=== PATIENT | male | born 1940 | race African-American/Black ===

== ENCOUNTER → 2017-05-12 | Outpatient (CLI) | payer MEDICARE, MEDICAID ==
[~2017-05-12] MED LIST: AMLO5TAB2 PO; AMLO5TAB22 PO; ASPI-147 PO; ASPI1TAB7 PO; INFL1INJ56 IM; MULT1TAB64 PO; MUPI2OIN TOPICAL; TAB-TAB PO; WHEEMIS3; roho cushion
[2017-05-12 10:47] LABS: ALT (GPT) 17 U/L (12-78); ANION GAP 7 MEQ/L (5-15); AST (GOT) 13 U/L (15-37); BICARBONATE 28.3 MEQ/L (21.0-32.0); BLOOD UREA NITROGEN 13 MG/DL (7-18); CHLORIDE 103 MEQ/L (98-107); GLOMERULAR FILTRATION RATE 114 ML/MIN (>89); GLUCOSE,FASTING 79 MG/DL (74-99); SODIUM (NA) 138 MEQ/L (136-145)
[2017-05-12 10:49] LABS: ALKALINE PHOSPHATASE 73 U/L (45-117); TOTAL BILIRUBIN ADULT 0.3 MG/DL (0.2-1.0)
== END ==
LOC: CLAB 09:49
PROVIDERS: ATTEND Family Medicine
DX: I10 Essential (primary) hypertension (principal)
CPT/HCPCS: 36415; 80053

== ENCOUNTER 2017-05-15 21:04 | Emergency (ER) | payer MEDICARE, MEDICAID ==
[~2017-05-15] VITALS: Ht 177.8 cm; Wt 65.0 kg
[~2017-05-15 21:04] MED LIST changes: -ASPI-147 PO; -INFL1INJ56 IM; -MULT1TAB64 PO; -roho cushion
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
[2017-05-15 21:13] VITALS: BP 135/91; PULSE 86; RESP 15; O2SAT 97
[2017-05-15] MEDS ORDERED: LIDOCAINE 2%/EPINEPHrine 1:100,000 50ML MDV NERV BLOCK ONE (21:30)
--- NOTE | 2017-05-15 21:35 | PD ---
Physical Exam Date Seen by Provider: May 15, 2017 Time Seen by Provider: 21:34 Narrative I was asked by Dr. Mera to see this patient for laceration to the left upper lateral cheek, and upper middle inner lip status post fall. Please see my procedure note. Data Data Last Documented VS Vital Signs Date Time Temp Pulse Resp B/P (MAP) Pulse Ox O2 Delivery O2 Flow Rate FiO2 05/15/17 21:23 84 96 Room Air 05/15/17 21:13 15 135/91 (106) Orders Orders Lidocai-Epi 2%-1:100,000 Inj (Xylocaine- (05/15/17 21:30) Ct Brain W/O Iv Contrast(Rout) (05/15/17 ) Ct Cerv Spine W/O Contrast (05/15/17 ) Ct Facial Bones W/O Iv Cont (05/15/17 ) MDM Medical Record Reviewed: Yes Supervised Visit with BRISEIDA: Yes Procedures Procedure Narrative LACERATION #1 LOCATION: Left upper lateral cheek LENGTH: 3.5 cm NUMBER OF STITCHES/BLESSING: 4 interrupted horizontal mattress and one simple interrupted REPAIR: The area of the laceration was prepped with Betadine and sterilely draped. The laceration was infiltrated with 2.5 mL was 2% lidocaine with epi. The wound was copiously irrigated and explored without evidence of foreign body , tendon injury or neurovascular injury. The wound was closed using 5-0 Prolene. This was a single layer repair. The patient was advised to keep the wound site clean and dry. Patient tolerated the procedure well. LACERATION #2 LOCATION: Upper middle inner lip LENGTH: 1 cm NUMBER OF STITCHES/BLESSING: 1 horizontal mattress REPAIR: The area of the laceration was prepped with Betadine and sterilely draped. The laceration was infiltrated with 2 mL 2% lidocaine with epi. The wound was copiously irrigated and explored without evidence of foreign body, tendon injury or neurovascular injury. The wound was closed using 5-0 Vicryl. This was a single layer repair. The patient was advised to keep the area clean and dry. Patient tolerated the procedure well. Condition: Stable aBrry Ramos May 15, 2017 21:35
[2017-05-15 22:30] VITALS: BP 136/82; PULSE 80; RESP 14; O2SAT 96
--- NOTE | 2017-05-15 22:53 | RADRPT ---
EXAM DATE/TIME: 05/15/2017 22:21 [facility] COMPARISON: No previous studies available for comparison. INDICATIONS : Trauma. Fall. RADIATION DOSE: 35.40 CTDIvol (mGy) MEDICAL HISTORY : Cardiovascular disease. Hypertension. Carcinoma, prostate.Renal cancer SURGICAL HISTORY : Nephrectomy, right. ENCOUNTER: Initial ACUITY: 1 day PAIN SCALE: 0/10 LOCATION: cranial TECHNIQUE: Multiple contiguous axial images were obtained of the head. Using automated exposure control and adj ustment of the mA and/or kV according to patient size, radiation dose was kept as low as reasonably a chievable to obtain optimal diagnostic quality images. DICOM format image data is available electro nically for review and comparison. FINDINGS: CEREBRUM: The ventricles are normal for age. No evidence of midline shift, mass lesion, hemorrhage or acute in farction. No extra-axial fluid collections are seen. POSTERIOR FOSSA: The cerebellum and brainstem are intact. The 4th ventricle is midline. The cerebellopontine angle i s unremarkable. EXTRACRANIAL: The visualized portion of the orbits is intact. SKULL: The calvaria is intact. No evidence of skull fracture. CONCLUSION: 1. No acute intracranial abnormalities. Chapito Melo MD on May 15, 2017 at 22:47 Board Certified Radiologist. This report was verified electronically.
--- NOTE | 2017-05-15 22:56 | RADRPT ---
EXAM DATE/TIME: 05/15/2017 22:21 [facility] COMPARISON: No previous studies available for comparison. INDICATIONS : Trauma. Fall. RADIATION DOSE: 36.52 CTDIvol (mGy) MEDICAL HISTORY : Cardiovascular disease. Hypertension. Carcinoma, prostate.Renal cancer SURGICAL HISTORY : Nephrectomy, right. ENCOUNTER: Initial ACUITY: 1 day PAIN SCORE: 0/10 LOCATION: Left facial TECHNIQUE: Volumetric scanning of the facial bones was performed. Using automated exposure control and adjustme nt of the mA and/or kV according to patient size, radiation dose was kept as low as reasonably achiev able to obtain optimal diagnostic quality images. DICOM format image data is available electronicall y for review and comparison. FINDINGS: ORBITS: The orbital and infraorbital osseous structures are intact. The retroconal structures have a normal configuration. No radiopaque foreign bodies are seen. NASAL BONE: The nasal bone and maxillary spine are intact ZYGOMATIC ARCHES: Symmetric without evidence of fracture. SINUSES: The maxillary, ethmoid and frontal sinuses are intact. No air-fluid levels seen. NASAL CAVITY: The nasal septum is intact and midline. The lacrimal ducts are intact. SOFT TISSUES: No radiopaque foreign bodies seen. No soft-tissue swelling is seen. INTRACRANIAL: No intracranial air seen. CRIBIFORM PLATE: Grossly intact. CONCLUSION: Normal examination for a patient of this age. Chapito Melo MD on May 15, 2017 at 22:52 Board Certified Radiologist. This report was verified electronically.
--- NOTE | 2017-05-15 22:59 | RADRPT ---
EXAM DATE/TIME: 05/15/2017 22:21 [facility] COMPARISON: No previous studies available for comparison. INDICATIONS : Trauma. Fall. RADIATION DOSE: 20.82 CTDIvol (mGy) MEDICAL HISTORY : Cardiovascular disease. Hypertension. Carcinoma, prostate.Renal cancer SURGICAL HISTORY : Nephrectomy, right. ENCOUNTER: Initial ACUITY: 1 day PAIN SCALE: 0/10 LOCATION: neck TECHNIQUE: Volumetric scanning of the cervical spine was performed. Multiplanar reconstructions in the sagittal, coronal and oblique axial planes were performed. Using automated exposure control and adjustment o f the mA and/or kV according to patient size, radiation dose was kept as low as reasonably achievable to obtain optimal diagnostic quality images. DICOM format image data is available electronically f or review and comparison. FINDINGS: VERTEBRAE: Normal vertebral body height. ALIGNMENT: No evidence of subluxation. C2-C3: The bony spinal canal is normal in size. No evidence of disc bulge or herniation. The neural forami na are bilaterally patent. C3-C4: The bony spinal canal is normal in size. No evidence of disc bulge or herniation. The neural forami na are bilaterally patent. C4-C5: The bony spinal canal is normal in size. No evidence of disc bulge or herniation. The neural forami na are bilaterally patent. C5-C6: The bony spinal canal is normal in size. No evidence of disc bulge or herniation. The neural forami na are bilaterally patent. C6-C7: The bony spinal canal is normal in size. No evidence of disc bulge or herniation. The neural forami na are bilaterally patent. C7-T1: The bony spinal canal is normal in size. No evidence of disc bulge or herniation. The neural forami na are bilaterally patent. CONCLUSION: 1. There is moderate degenerative disc disease and moderate to severe facet arthropathy. No fracture or spondylolisthesis. No significant bony canal stenosis. Chapito Melo MD on May 15, 2017 at 22:54 Board Certified Radiologist. This report was verified electronically.
[2017-05-15 23:30] VITALS: BP 124/84; PULSE 82; RESP 16; O2SAT 97
[2017-06-10] MEDS ORDERED: WHEEMIS3 (15:37)
[2017-06-10] MEDS ORDERED: INFL1INJ56 IM (15:45)
[2017-06-23] MEDS ORDERED: MULT1TAB64 PO (14:58)
[2017-06-23] MEDS ORDERED: ASPI-147 PO (14:58)
[2017-06-24] MEDS ORDERED: roho cushion (15:38)
== END 2017-05-16 00:21 | disposition home or self-care (01) ==
LOC: NEPC 21:04
DX: S01.412A Laceration without foreign body of left cheek and temporomandibular area, initial encounter (principal); S01.511A Laceration without foreign body of lip, initial encounter; I69.354 Hemiplegia and hemiparesis following cerebral infarction affecting left non-dominant side; W05.0XXA Fall from non-moving wheelchair, initial encounter; Z99.3 Dependence on wheelchair
CPT/HCPCS: 12013; 70450; 70486; 72125

== ENCOUNTER 2017-05-22 16:10 | Emergency (ER) | payer MEDICARE, MEDICAID ==
[~2017-05-22] VITALS: Ht 177.8 cm; Wt 80.0 kg
[2017-05-22 16:11] VITALS: BP 96/66; PULSE 93; RESP 20; TEMP 97.8; O2SAT 96
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
[2017-06-10] MEDS ORDERED: WHEEMIS3 (15:37)
[2017-06-10] MEDS ORDERED: INFL1INJ56 IM (15:45)
[2017-06-23] MEDS ORDERED: MULT1TAB64 PO (14:58)
[2017-06-23] MEDS ORDERED: ASPI-147 PO (14:58)
[2017-06-24] MEDS ORDERED: roho cushion (15:38)
== END 2017-05-22 17:15 | disposition home or self-care (01) ==
LOC: NEPK 16:10
DX: S01.402D Unspecified open wound of left cheek and temporomandibular area, subsequent encounter (principal); X58.XXXD Exposure to other specified factors, subsequent encounter; Z48.02 Encounter for removal of sutures
CPT/HCPCS: 99281

== ENCOUNTER 2017-08-27 23:08 | Inpatient (IN) | payer MEDICARE, MEDICAID ==
[~2017-08-27] VITALS: Ht 175.3 cm; Wt 86.5 kg
[~2017-08-27 23:08] MED LIST changes: -AMLO5TAB22 PO; +ASPI-147 PO; -ASPI1TAB7 PO; +CARBSOL EACH EYE; +MULT1TAB64 PO; -TAB-TAB PO; +roho cushion
[2017-08-27 23:13] VITALS: O2SAT 92
[2017-08-27 23:20] VITALS: BP 150/67; PULSE 127; RESP 10; TEMP 97; O2SAT 90; O2SAT 98
[2017-08-27 23:35] VITALS: BP 72/47; PULSE 129; RESP 16; O2SAT 95
[2017-08-27 23:40] VITALS: TEMP 97
[2017-08-27 23:44] LABS: AUTOMATED NEUTROPHIL # 1.8 TH/MM3 (1.8-7.7); BASOPHIL # 0.1 TH/MM3 (0-0.2); BASOPHIL % 0.7 % (0.0-2.0); EOSINOPHIL # 0.2 TH/MM3 (0-0.4); EOSINOPHIL % 1.6 % (0.0-4.0); HEMOGLOBIN 13.8 GM/DL (13.0-17.0); LYMPH % 72.9 % (9.0-44.0); LYMPHOCYTE # 6.9 TH/MM3 (1.0-4.8); MEAN CELL VOLUME 88.9 FL (80.0-100.0); MEAN CORPUSCULAR HEMOGLOBIN 29.2 PG (27.0-34.0); MEAN CORPUSCULAR HGB CONC 32.8 % (32.0-36.0); MONO % 5.6 % (0.0-8.0); MONOCYTE # 0.5 TH/MM3 (0-0.9); NEUT % 19.2 % (16.0-70.0); PLATELET COUNT 120 TH/MM3 (150-450); RED BLOOD COUNT 4.72 MIL/MM3 (4.50-5.90); RED CELL DISTRIBUTION WIDTH 15.8 % (11.6-17.2); WHITE BLOOD COUNT 9.5 TH/MM3 (4.0-11.0)
[2017-08-27] MEDS ORDERED: TERBUTALINE INJ 1 MG/ML AMP SQ PRN (23:45)
[2017-08-27] MEDS ORDERED: SODIUM CHLOR 0.9% 1000 ML INJ 1,000 ML IV ONE (23:45)
[2017-08-27] MEDS ORDERED: SODIUM CHLORIDE 0.9% FLUSH 10 ML FLUSH IVF PRN (23:45)
[2017-08-27] MEDS ORDERED: NOREPINEPHRINE-DEXTROSE DRIP 250 ML IV PRN (23:45)
[2017-08-27 23:49] VITALS: O2SAT 100
[2017-08-27 23:52] VITALS: BP 102/74; PULSE 124; RESP 14; O2SAT 100
[2017-08-27 23:55] LABS: INTERNATIONAL NORMALIZED RATIO 1.1 RATIO; PROTHROMBIN TIME - PATIENT 11.5 SEC (9.8-11.6)
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
[2017-08-28] VITALS (32 sets, daily range): BP systolic 76–118; BP diastolic 52–94; PULSE 75–127; RESP 10–20; TEMP 95–98.2; O2SAT 92–100
[2017-08-28 00:02] LABS: ALT (GPT) 114 U/L (12-78); AST (GOT) 114 U/L (15-37); BICARBONATE 22.7 MEQ/L (21.0-32.0); BLOOD UREA NITROGEN 14 MG/DL (7-18); CALCIUM 8.4 MG/DL (8.5-10.1); CHLORIDE 108 MEQ/L (98-107); CREATININE 1.17 MG/DL (0.60-1.30); GLOMERULAR FILTRATION RATE 61 ML/MIN (>89); GLUCOSE,RANDOM 151 MG/DL (74-106); SODIUM (NA) 143 MEQ/L (136-145)
[2017-08-28 00:05] LABS: ALKALINE PHOSPHATASE 75 U/L (45-117); TOTAL BILIRUBIN ADULT 0.5 MG/DL (0.2-1.0); TOTAL PROTEIN 6.6 GM/DL (6.4-8.2); TROPONIN I 0.04 NG/ML (0.02-0.05)
[2017-08-28] MEDS ORDERED: IOHEXOL 350 MG/ML 10 ML VIAL (for RAD DIAG) IVCONTRAST ONE (00:19)
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
--- NOTE | 2017-08-28 00:25 | RADRPT ---
EXAM DATE/TIME: 08/27/2017 23:59 [facility] COMPARISON: CT PULMONARY ANGIOGRAM, August 28, 2017, 0:01. CHEST SINGLE AP, November 23, 2014, 16:00. INDICATIONS : Stemi alert. Post intubation. MEDICAL HISTORY : Unobtainable. SURGICAL HISTORY : Unobtainable. ENCOUNTER: Initial ACUITY: 1 day PAIN SCORE: Non-responsive. LOCATION: chest FINDINGS: Endotracheal tube tip is just above the paula. There is slight parenchymal opacity at the left lung base. No significant effusion. Cardiac contours are grossly satisfactory for technique and projection . CONCLUSION: Parenchymal opacity developing at the left lung base Chema Freeman MD on August 28, 2017 at 0:22 Board Certified Radiologist. This report was verified electronically.
--- NOTE | 2017-08-28 00:29 | RADRPT ---
EXAM DATE/TIME: 08/28/2017 00:01 [facility] COMPARISON: No previous studies available for comparison. INDICATIONS : Respiratory distress. IV CONTRAST: 70 cc Omnipaque 350 (iohexol) IV RADIATION DOSE: 15.34 CTDIvol (mGy) MEDICAL HISTORY : Non-responsive. SURGICAL HISTORY : Non-responsive. ENCOUNTER: Initial ACUITY: 1 day PAIN SCALE: Non-responsive LOCATION: chest TECHNIQUE: Volumetric scanning of the chest was performed using a pulmonary embolism protocol MIP images were re constructed. Using automated exposure control and adjustment of the mA and/or kV according to patien t size, radiation dose was kept as low as reasonably achievable to obtain optimal diagnostic quality images. DICOM format image data is available electronically for review and comparison. Follow-up recommendations for detected pulmonary nodules are based at a minimum on nodule size and pa tient risk factors according to Fleischner Society Guidelines. FINDINGS: PULMONARY ARTERIES: Extensive bilateral pulmonary embolism, slightly more extensive on the right than the left with a sad dle component draped over the pulmonary artery bifurcation. LUNGS: Mild airspace infiltrate in the posterior left lung base. PLEURAE: There is no pleural thickening or pleural effusion. MEDIASTINUM: There is good visualization of the great vessels of the middle mediastinum. No evidence of mediastin al or hilar adenopathy/mass. Endotracheal tube tip extends slightly into the right mainstem bronchus. MUSCULOSKELETAL: Within normal limits for patient age. MISCELLANEOUS: The visualized upper abdominal organs demonstrate no acute abnormality. CONCLUSION: Saddle pulmonary embolism. Endotracheal tube tip extends into the right mainstem bronchus. Retraction by couple of centimeters r ecommended Chema Freeman MD on August 28, 2017 at 0:23 Board Certified Radiologist. This report was verified electronically.
[2017-08-28] MEDS ORDERED: POTASSIUM PHOSPHATE INJ 30 MMOL in SODIUM CHLOR 0.9% 250 ML INJ 250 ML IV PRN (00:30)
[2017-08-28] MEDS ORDERED: TERBUTALINE INJ 1 MG/ML AMP SQ PRN (00:30)
[2017-08-28] MEDS ORDERED: MAGNESIUM SULFATE INJ 4 GM in SODIUM CHLORIDE 0.9% INJ 92 ML IV PRN (00:30)
[2017-08-28] MEDS ORDERED: POTASSIUM CHLORIDE 25 MEQ EFFERVESCENT TAB PO PRN (00:30)
[2017-08-28] MEDS ORDERED: MIDAZOLAM HCL 2 MG/2 ML VIAL IV PUSH PRN (00:30)
[2017-08-28] MEDS ORDERED: DEXTROSE 50% IN WATER 50 ML VIAL(D50) IV PUSH PRN (00:30)
[2017-08-28] MEDS ORDERED: ACETAMINOPHEN 325 MG TAB PO PRN (00:30)
[2017-08-28] MEDS ORDERED: MISCELLANEOUS NURSING INFORMATION XX SCH (00:30)
[2017-08-28] MEDS ORDERED: RESP: ALBUTEROL 2.5 MG/IPRATROPIUM 0.5 MG NEB (PRN) INH (00:30)
[2017-08-28] MEDS ORDERED: POTASSIUM PHOSPHATE MONOBASIC 500 MG TAB PO/TUBE PRN (00:30)
[2017-08-28] MEDS ORDERED: CHLORHEXIDINE GLUCONATE 2 % 1 PACK (2 CLOTHS) TOP PRN (00:30)
[2017-08-28] MEDS ORDERED: ALTEPLASE INJ 100 MG in WATER STERILE FOR INJ 100 ML IV ONE (00:30)
[2017-08-28] MEDS ORDERED: MISCELLANEOUS NURSING INFORMATION OTHER PRN (00:30)
[2017-08-28] MEDS ORDERED: ONDANSETRON HCL 4 MG/2 ML VIAL IV PUSH PRN (00:30)
[2017-08-28] MEDS ORDERED: SODIUM PHOSPHATE INJ 30 MMOL in SODIUM CHLOR 0.9% 250 ML INJ 240 ML IV PRN (00:30)
[2017-08-28] MEDS ORDERED: POTASSIUM PHOSPHATE MONOBASIC 500 MG TAB PO PRN (00:30)
[2017-08-28] MEDS ORDERED: MAGNESIUM OXIDE 400 MG TAB PO PRN (00:30)
[2017-08-28] MEDS ORDERED: NOREPINEPHRINE-DEXTROSE DRIP 250 ML IV PRN (00:30)
[2017-08-28] MEDS ORDERED: MAGNESIUM SULFATE INJ 2 GM in SODIUM CHLORIDE 0.9% INJ 96 ML IV PRN (00:30)
[2017-08-28] MEDS ORDERED: POTASSIUM CHLOR 40 MEQ PREMIX 100 ML IV PRN ×2 (00:30)
[2017-08-28] MEDS ORDERED: POTASSIUM CHLOR 20 MEQ PREMIX 100 ML IV PRN (00:30)
--- NOTE | 2017-08-28 00:33 | RADRPT ---
EXAM DATE/TIME: 08/27/2017 23:58 [facility] COMPARISON: CT BRAIN W/O CONTRAST, May 15, 2017, 22:21. CT PULMONARY ANGIOGRAM, August 28, 2017, 0:01. INDICATIONS : Altered mental status. RADIATION DOSE: 56.35 CTDIvol (mGy) MEDICAL HISTORY : Non-responsive. SURGICAL HISTORY : Non-responsive. ENCOUNTER: Initial ACUITY: 1 day PAIN SCALE: 0/10 LOCATION: cranial TECHNIQUE: Multiple contiguous axial images were obtained of the head. Using automated exposure control and adj ustment of the mA and/or kV according to patient size, radiation dose was kept as low as reasonably a chievable to obtain optimal diagnostic quality images. DICOM format image data is available electro nically for review and comparison. FINDINGS: Mild stable symmetric ventriculomegaly. Small remote stroke in the high convexity posterior right fro ntal region very patchy mild diminished attenuation and deep white matter structures elsewhere. No ev idence of intracranial mass or hemorrhage. Nothing to suggest acute infarction. Extracranial structur es are grossly benign. CONCLUSION: No acute intracranial findings. Chema Freeman MD on August 28, 2017 at 0:27 Board Certified Radiologist. This report was verified electronically.
[2017-08-28 01:07] LABS: BANDS 1 % (0-6); LYMPHOCYTES 76 % (9-44); METAMYELOCYTES 1 % (0-1); MONOCYTES 5 % (0-8); MYELOCYTES 2 % (0-0); NEUTROPHIL # MANUAL DIFF 1.6 TH/MM3 (1.8-7.7); POLYS (SEG NEUTROPHILS) 13 % (16-70)
[2017-08-28 01:08] LABS: ACANTHOCYTES OCC (NORMAL); OVALOCYTES 2+ (NORMAL)
[2017-08-28 01:15] LABS: LACTIC ACID SEPSIS PROTOCOL 4.2 mmol/L (0.4-2.0)
[2017-08-28] MEDS: SODIUM CHLOR 0.9% 1000 ML INJ 1,000 ML IV SCH ×3 (02:13→23:39)
[2017-08-28] MEDS: VASOPRESSIN INJ 40 UNITS in DEXTROSE 5% IN WATER 100ML INJ 98 ML IV SCH ×4 (02:38→16:19)
[2017-08-28] MEDS ORDERED: HEPARIN SODIUM - IV 10,000 UNITS/10 ML VIAL IV PUSH PRN ×2 (03:00)
[2017-08-28] MEDS ORDERED: PROPOFOL 1000 MG/100 ML INJ 100 ML IV PRN (03:15)
--- NOTE | 2017-08-28 03:30 | PD.PROCEDR ---
Procedure Note Procedure I provided the service on 08/27. Delayed note entry. Endotracheal Intubation Diagnosis: Out of hospital cardiac arrest Indications: Patient was emergently intubated in the field. On my evaluation in the emergency department, it was noted that the cuff would not withhold air and the patient became worseningly hypoxic and losing tidal volumes. Decision was made to emergently reintubated patient for torn ET tube cuff Consent: Emergent Anesthesia: Rocuronium 50 mg IV Description of the Procedure: The patient was ventilated on 100% FiO2. A De Luna #2 was used for laryngoscopy and a Grade I view was obtained. Under direct visualization, the prior 7.0 ET tube was removed which demonstrated a torn cuff. All grade 1 view was still obtainable, a 8.5 cuffed endotracheal tube was inserted atraumatically through the vocal cords. Confirmation of correct endotracheal tube placement was made by equal and bilateral breath sounds and colorimetric CO2 detection. The endotracheal tube was secured at 24 cm at the teeth. There were no immediate complications noted. The patient remained hemodynamically stable throughout the procedure. A chest x-ray has been ordered. I personally performed the procedure. Stevo Noriega MD Aug 28, 2017 03:30
[2017-08-28] MEDS: CHLORHEXIDINE GLUCONATE 2 % 1 PACK (2 CLOTHS) TOP SCH (04:00)
[2017-08-28] MEDS ORDERED: ATROPINE SULFATE 1 MG/10 ML SYRINGE IV ONE (05:00)
[2017-08-28] MEDS ORDERED: NOREPINEPHRINE 4 MG/4 ML AMP IV ONE (05:00)
[2017-08-28] MEDS ORDERED: EPINEPHrine HCL (1:10,000) 1 MG/10 ML SYRINGE IV ONE (05:00)
[2017-08-28] MEDS: RESP: ALBUTEROL 2.5 MG/IPRATROPIUM 0.5 MG NEB (SCH) INH ×4 (05:35→20:54)
[2017-08-28] MEDS: INSULIN NovoLIN REGULAR SUPPLEMENTAL SCALE SQ SCH ×4 (06:00→23:39)
[2017-08-28] MEDS: fentaNYL DRIP 250 ML IV PRN ×3 (06:50→23:35)
[2017-08-28] MEDS: FAMOTIDINE 20 MG/2 ML VIAL IV PUSH SCH ×2 (08:44→22:15)
[2017-08-28] MEDS: DOCUSATE SODIUM 50 MG/SENNA 8.6 MG TAB PO SCH ×2 (08:44→22:15)
[2017-08-28] MEDS: CHLORHEXIDINE 0.12% (ORAL KIT) 15 ML CUP MT SCH ×2 (08:44→22:16)
[2017-08-28] MEDS: HEPARIN 25,000 UNITS-D5W 250 ML - PREMIX IV PRN (09:02)
[2017-08-28] MEDS: POTASSIUM CHLOR 20 MEQ PREMIX 100 ML IV PRN ×2 (14:05→17:43)
[2017-08-28] MEDS: NOREPINEPHRINE-DEXTROSE DRIP 250 ML IV PRN ×2 (15:06→16:59)
--- NOTE | 2017-08-28 15:38 | ECHRPT ---
Indication: pulmonary embolism CONCLUSIONS The left ventricular systolic function is severely reduced with an estimated ejection fraction of 20 %. Normal left ventricular size. Wall thickness is normal. There is global left ventricular dysfunction. Aortic valve sclerosis is present. Trace aortic valve regurgitation. There is mild to moderate tricuspid valve regurgitation. The estimated pulmonary arterial pressure is 32 mmHg. BP: 89 / 65 HR: 90 Rhythm: Sinus MEASUREMENTS (Male / Female) Normal Values Technical Quality:Fair 2D ECHO LV Diastolic Diameter PLAX 4.1 cm 4.2 - 5.9 / 3.9 - 5.3 cm LV Systolic Diameter PLAX 3.8 cm IVS Diastolic Thickness 1.0 cm 0.6 - 1.0 / 0.6 - 0.9 cm LVPW Diastolic Thickness 1.1 cm 0.6 - 1.0 / 0.6 - 0.9 cm LV Relative Wall Thickness 0.5 RV Internal Dim ED PLAX 2.5 cm LVOT Diameter 2.0 cm LV Ejection Fraction MOD 4C 15.0 % LV Cardiac Index MOD 4C 421.5 cm/minm LV Ejection Fraction 4C AL 20.7 % LV Cardiac Index 4C AL 604.5 cm/minm M-MODE Aortic Root Diameter MM 3.4 cm AV Cusp Separation MM 2.2 cm DOPPLER AV Peak Velocity 85.3 cm/s AV Peak Gradient 2.9 mmHg AI Peak Velocity 227.0 cm/s AI Peak Gradient 20.6 mmHg AI Pressure Half Time 516.0 ms LVOT Peak Velocity 78.5 cm/s LVOT Peak Gradient 2.5 mmHg AV Area Cont Eq pk 2.9 cm MV Area PHT 3.0 cm LV E' Lateral Velocity 2.8 cm/s TR Peak Velocity 228.0 cm/s TR Peak Gradient 20.8 mmHg Right Atrial Pressure 10.0 mmHg Pulmonary Artery Systolic Pressu 30.8 mmHg Right Ventricular Systolic Press 30.8 mmHg PV Peak Velocity 65.0 cm/s PV Peak Gradient 1.7 mmHg FINDINGS LEFT VENTRICLE The left ventricular systolic function is severely reduced with an estimated ejection fraction of 20 %. Normal left ventricular size. Wall thickness is normal. There is global left ventricular dysfunction. RIGHT VENTRICLE Normal right ventricular size and systolic function. LEFT ATRIUM The left atrial size is normal. RIGHT ATRIUM The right atrial size is normal. ATRIAL SEPTUM Normal atrial septal thickness without atrial level shunting by limited color doppler interrogation. AORTA The aortic root and proximal ascending aorta are normal in size on limited imaging. MITRAL VALVE Structurally normal mitral valve. No mitral valve stenosis or regurgitation. AORTIC VALVE Trileaflet aortic valve. Aortic valve sclerosis is present. Trace aortic valve regurgitation. TRICUSPID VALVE Structurally normal tricuspid valve. There is mild to moderate tricuspid valve regurgitation. The estimated pulmonary arterial pressure is 32.0 mmHg. PULMONARY VALVE No pulmonary valve regurgitation or stenosis. VESSELS The inferior vena cava is normal in size. PERICARDIUM No pericardial effusion. Cindy Jain MD, FACC (Electronically Signed) Final Date:28 August 2017 15:37
--- NOTE | 2017-08-28 18:33 | HHI.CCPN ---
Subjective Remarks/Hospital Course This is a 76-year-old male who presents as an out of hospital cardiac arrest. Per EMS report, there received a phone call for shortness of breath. When they arrived at the scene, patient had agonal respirations and was found to be in PEA. ACLS was initiated. Patient was given a total of 2 mg epinephrine, 1 amp of bicarbonate. ROSC was obtained momentarily, but PEA arrest ensued shortly after. A second round of ACLS by EMS, then ROSC was obtained again. The patient arrived to the emergency department with a pulse but severely hypotensive in shock. In emergency Department patient was started on norepinephrine.. CTA of the chest demonstrated massive saddle pulmonary embolism. Due to his hemodynamic instability, decision was made to pursue lytic therapy with systemic TPA. Patient is transferred to the ICU for ongoing care. I evaluated patient in the emergency department. Due to his clinical condition, no additional information is available from the patient. Subjective: 08/28: The patient continues on multiple vasopressors currently to maintain MAP greater than 65. OGT to low intermittent wall suction exhibiting bloody output. Objective Vital Signs Date Time Temp Pulse Resp B/P (MAP) Pulse Ox O2 Delivery O2 Flow Rate FiO2 08/28/17 16:59 79 97/68 08/28/17 16:00 40 08/28/17 16:00 96.0 14 100 08/28/17 01:13 Ventilator 08/27/17 23:13 15.00 Intake and Output 08/28/17 08/28/17 08/29/17 08:00 16:00 00:00 Intake Total 1100 ml 65 ml Output Total 310 ml 200 ml Balance 790 ml 65 ml -200 ml Result Diagram: 08/27/17 2332 08/27/17 2332 Other Results Laboratory Tests Test 08/28/17 04:24 Blood Gas Puncture Site ART LINE Blood Gas Patient Temperature 98.6 Blood Gas HCO3 22 mmol/L (22-26) Blood Gas Base Excess -2.8 mmol/L (-2-2) Blood Gas Oxygen Saturation 98 % (90-100) Arterial Blood pH 7.32 (7.380-7.420) Arterial Blood Partial Pressure CO2 45 mmHg (38-42) Arterial Blood Partial Pressure O2 242 mmHg (61-120) Arterial Blood Oxygen Content 18.1 Vol % (12.0-20.0) Arterial Blood Carboxyhemoglobin 0.2 % (0-4) Arterial Blood Methemoglobin 1.1 % (0-2) Blood Gas Hemoglobin 12.7 G/DL (12.0-16.0) Oxygen Delivery Device VENTILATOR Blood Gas Ventilator Setting PRVC / AC / Blood Gas Inspired Oxygen 70 % Imaging Last Impressions Chest X-Ray 08/27/171 Signed Impressions: Service Date/Time: August 23:59 - CONCLUSION: Parenchymal opacity developing at the left lung base Chema Freeman MD CT Angiography 08/27/171 Signed Impressions: Service Date/Time: Monday, August 28, 2017 00:01 - CONCLUSION: Saddle pulmonary embolism. Endotracheal tube tip extends into the right mainstem bronchus. Retraction by couple of centimeters recommended Chema Freeman MD Head CT 08/27/17 0000 Signed Impressions: Service Date/Time: August 23:58 - CONCLUSION: No acute intracranial findings. Chema Freeman MD Objective Remarks GENERAL: Elderly male, lying in bed, intubated and sedated on propofol HEENT: Normocephalic. Atraumatic. Pupils are 5 mm, equal, round, nonreactive, conjugate. Mucous membranes are moist NECK: Trachea is midline. There is no JVD. CHEST: Equal chest rise. PRVC. 100% FiO2. SPO2 of 85% on my initial evaluation CARDIOVASCULAR: Tachycardic rate, irregularly irregular rhythm. Frequent PVCs. Hypotensive on norepinephrine ABDOMEN: Soft, nontender, nondistended. No guarding. MUSCULOSKELETAL: Pulses 2+. No peripheral edema. NEUROLOGICAL: GCS 3. Pulses above. Negative cough. Negative gag. Spontaneous eye opening. A/P Assessment and Plan Assessment: 76-year-old male with out of hospital cardiac arrest and persistent hypoxic ischemic encephalopathy, found to have massive pulmonary embolus with hemodynamic collapse. Agree with systemic TPA. Ideally he would be a good therapy therapeutic hypothermia candidate as he will need neuro protection, however we cannot do this due to his lytic therapy. We will target 36 in a targeted temperature therapy manner in order to prevent hyperthermia without the bleeding risks associated with full therapeutic hypothermia. He remains very critically ill at very high risk of sudden cardiac from his massive PE. Plan by systems: Neurologic: Hypoxic ischemic encephalopathy Frequent neuro checks Propofol and fentanyl for goal RASS -2 Avoid long-acting sedatives Respiratory: Acute hypoxic and hypercarbic respiratory failure Massive saddle pulmonary embolus Intubation noted right mainstem bronchus ETT retracted back to use 22 cm at the lip Vent bundle Head of bed at 30 Nebs Wean FiO2 for goal SPO2 greater than 90% Systemic TPA, 100 mg, followed by heparin infusion initiated Cardiovascular: Massive saddle pulmonary embolism Out of hospital cardiac arrest Cardiogenic shock 2-D echo Systemic TPA, followed by heparin infusion 6 hours later Trend lactates Continue vasopressin 0.04 units per minute Wean levophed as tolerated for goal map greater than 65 Renal: Acute kidney injury superimposed on chronic kidney disease, unknown stage Place Perez for accurate I's and O's -- Strict I/Os FEN/GI: Acute protein calorie malnutrition- moderate Nothing by mouth Maintenance fluids ICU electrolyte protocol Daily BMP Heme/ID: 100 mg systemic TPA for massive pulmonary embolus. Continue heparin drip, monitor PTT per protocol Endocrine: Hyperglycemia of critical illness -- SSI, every 6, medium scale Prophylaxis: GI Prophylaxis Pepcid IV DVT Prophylaxis -- SCDs TPA followed by systemic heparin drip Lines: 08/27 radial arterial line placed by the emergency room physician Ideally the patient will need central access, however TPA was initiated prior to central access being obtained. We will use peripheral IVs 16-gauge and monitor the vasopressors closely. Ana Dispo: To ICU. Critically ill. This patient remains critically ill with one or more organ systems which are or may become a threat to life. I have spent in excess of 33 minutes discontinuously in the care and management of this patient. This time is exclusive of procedures, and includes, but is not limited to, evaluation of the patient, review of the medical record, discussions with family, consultants, nursing staff, or respiratory therapy, and documentation in the medical record. Physician Ronda Castillo MD Aug 28, 2017 18:33
[2017-08-28 21:20] LABS: AUTOMATED NEUTROPHIL # 18.3 TH/MM3 (1.8-7.7); BASOPHIL % 0.1 % (0.0-2.0); HEMATOCRIT 35.8 % (39.0-51.0); HEMOGLOBIN 11.6 GM/DL (13.0-17.0); LYMPH % 5.6 % (9.0-44.0); LYMPHOCYTE # 1.2 TH/MM3 (1.0-4.8); MEAN CELL VOLUME 87.3 FL (80.0-100.0); MEAN CORPUSCULAR HEMOGLOBIN 28.2 PG (27.0-34.0); MEAN CORPUSCULAR HGB CONC 32.3 % (32.0-36.0); MEAN PLATELET VOLUME 10.9 FL (7.0-11.0); MONO % 5.7 % (0.0-8.0); MONOCYTE # 1.2 TH/MM3 (0-0.9); NEUT % 88.6 % (16.0-70.0); PLATELET COUNT 108 TH/MM3 (150-450); WHITE BLOOD COUNT 20.7 TH/MM3 (4.0-11.0)
[2017-08-29] VITALS (19 sets, daily range): BP systolic 88–118; BP diastolic 60–72; PULSE 77–103; RESP 8–17; TEMP 96.9–97.5; O2SAT 69–99
[2017-08-29] MEDS: NOREPINEPHRINE-DEXTROSE DRIP 250 ML IV PRN ×3 (03:28→19:36)
[2017-08-29] MEDS: RESP: ALBUTEROL 2.5 MG/IPRATROPIUM 0.5 MG NEB (SCH) INH ×4 (03:52→19:12)
[2017-08-29] MEDS: CHLORHEXIDINE GLUCONATE 2 % 1 PACK (2 CLOTHS) TOP SCH (04:00)
[2017-08-29] MEDS: INSULIN NovoLIN REGULAR SUPPLEMENTAL SCALE SQ SCH ×3 (05:28→18:00)
[2017-08-29 06:08] LABS: AUTOMATED NEUTROPHIL # 18.3 TH/MM3 (1.8-7.7); BASOPHIL % 0.1 % (0.0-2.0); HEMATOCRIT 31.9 % (39.0-51.0); HEMOGLOBIN 10.4 GM/DL (13.0-17.0); LYMPH % 6.5 % (9.0-44.0); LYMPHOCYTE # 1.4 TH/MM3 (1.0-4.8); MEAN CELL VOLUME 87.1 FL (80.0-100.0); MEAN CORPUSCULAR HEMOGLOBIN 28.5 PG (27.0-34.0); MEAN CORPUSCULAR HGB CONC 32.7 % (32.0-36.0); MONO % 8.2 % (0.0-8.0); MONOCYTE # 1.8 TH/MM3 (0-0.9); NEUT % 85.2 % (16.0-70.0); PLATELET COUNT 93 TH/MM3 (150-450); RED BLOOD COUNT 3.66 MIL/MM3 (4.50-5.90); RED CELL DISTRIBUTION WIDTH 16.2 % (11.6-17.2); WHITE BLOOD COUNT 21.4 TH/MM3 (4.0-11.0)
--- NOTE | 2017-08-29 06:44 | RADRPT ---
EXAM DATE/TIME: 08/29/2017 03:34 [facility] COMPARISON: CHEST SINGLE AP, August 27, 2017, 23:59. INDICATIONS : Shortness of breath, possible pulmonary disease. MEDICAL HISTORY : None. SURGICAL HISTORY : None. ENCOUNTER: Subsequent ACUITY: 3 days PAIN SCORE: Non-responsive. LOCATION: Bilateral chest FINDINGS: Endotracheal tube and nasogastric tube are present in good position. Mild left base parenchymal opaci ty obscured the diaphragm. Right lung is grossly clear. Cardiac contours are stable accounting for di fferences in technique and projection. CONCLUSION: No significant interval change Chema Freeman MD on August 29, 2017 at 6:41 Board Certified Radiologist. This report was verified electronically.
[2017-08-29 06:45] LABS: ALBUMIN 2.4 GM/DL (3.4-5.0); CALCIUM 7.2 MG/DL (8.5-10.1); CALCIUM-PROTEIN CORRECTED 8.1 MG/DL (8.5-10.1); CREATININE 1.02 MG/DL (0.60-1.30); MAGNESIUM 1.9 MG/DL (1.5-2.5); PHOSPHORUS 4.6 MG/DL (2.5-4.9); TOTAL BILIRUBIN ADULT 0.3 MG/DL (0.2-1.0); TOTAL PROTEIN 5.4 GM/DL (6.4-8.2)
[2017-08-29 08:03] LABS: ACANTHOCYTES OCC (NORMAL); OVALOCYTES 2+ (NORMAL)
[2017-08-29] MEDS: CHLORHEXIDINE 0.12% (ORAL KIT) 15 ML CUP MT SCH ×2 (08:33→21:39)
[2017-08-29] MEDS: DOCUSATE SODIUM 50 MG/SENNA 8.6 MG TAB PO SCH ×2 (08:33→21:39)
[2017-08-29] MEDS: VASOPRESSIN INJ 40 UNITS in DEXTROSE 5% IN WATER 100ML INJ 98 ML IV SCH ×2 (08:54)
[2017-08-29] MEDS: FAMOTIDINE 20 MG/2 ML VIAL IV PUSH SCH ×2 (08:58→21:39)
[2017-08-29] MEDS ORDERED: PNEUMOCOCCAL POLYVALENT INJ 25 MCG/0.5 ML SYR IM ONE (09:00)
[2017-08-29] MEDS ORDERED: INFLUENZA VIRUS VACCINE (QUADRIVALENT) 0.5 ML SYR IM ONE (09:00)
[2017-08-29] MEDS: SODIUM CHLOR 0.9% 1000 ML INJ 1,000 ML IV SCH ×2 (10:36→21:41)
[2017-08-29] MEDS: HEPARIN 25,000 UNITS-D5W 250 ML - PREMIX IV PRN (15:34)
--- NOTE | 2017-08-29 17:06 | HHI.CCPN ---
Subjective Remarks/Hospital Course This is a 76-year-old male who presents as an out of hospital cardiac arrest. Per EMS report, there received a phone call for shortness of breath. When they arrived at the scene, patient had agonal respirations and was found to be in PEA. ACLS was initiated. Patient was given a total of 2 mg epinephrine, 1 amp of bicarbonate. ROSC was obtained momentarily, but PEA arrest ensued shortly after. A second round of ACLS by EMS, then ROSC was obtained again. The patient arrived to the emergency department with a pulse but severely hypotensive in shock. In emergency Department patient was started on norepinephrine.. CTA of the chest demonstrated massive saddle pulmonary embolism. Due to his hemodynamic instability, decision was made to pursue lytic therapy with systemic TPA. Patient is transferred to the ICU for ongoing care. I evaluated patient in the emergency department. Due to his clinical condition, no additional information is available from the patient. Subjective: 08/28: The patient continues on multiple vasopressors currently to maintain MAP greater than 65. OGT to low intermittent wall suction exhibiting bloody output. 08/29:The patient is opening eyes spontaneously. Continues on vasopressor support. OGT noted to have 400 cc of bloody output over the last 12 hours. Plan for every 12 hours serial hemoglobin. Objective Vital Signs Date Time Temp Pulse Resp B/P (MAP) Pulse Ox O2 Delivery O2 Flow Rate FiO2 08/29/17 16:00 97.2 91 8 118/65 (82) 69 08/29/17 16:00 45 08/28/17 01:13 Ventilator 08/27/17 23:13 15.00 Intake and Output 08/29/17 08/29/17 08/30/17 08:00 16:00 00:00 Intake Total 250 ml 340 ml Output Total 400 ml Balance -150 ml 340 ml Result Diagram: 08/29/17 0600 08/29/17 0600 Other Results Laboratory Tests Test 08/29/17 04:18 Blood Gas Puncture Site ART LINE Blood Gas Patient Temperature 98.6 Blood Gas HCO3 22 mmol/L (22-26) Blood Gas Base Excess -4.8 mmol/L (-2-2) Blood Gas Oxygen Saturation 93 % (90-100) Arterial Blood pH 7.22 (7.380-7.420) Arterial Blood Partial Pressure CO2 55 mmHg (38-42) Arterial Blood Partial Pressure O2 83 mmHg (61-120) Arterial Blood Oxygen Content 14.1 Vol % (12.0-20.0) Arterial Blood Carboxyhemoglobin 0.4 % (0-4) Arterial Blood Methemoglobin 1.1 % (0-2) Blood Gas Hemoglobin 10.7 G/DL (12.0-16.0) Oxygen Delivery Device VENTILATOR Blood Gas Ventilator Setting PRVC14/500/1.0/+5 Blood Gas Inspired Oxygen 40 % Imaging Last Impressions Chest X-Ray 08/27/171 Signed Impressions: Service Date/Time: August 23:59 - CONCLUSION: Parenchymal opacity developing at the left lung base Chema Freeman MD CT Angiography 08/27/172330 Signed Impressions: Service Date/Time: Monday, August 28, 2017 00:01 - CONCLUSION: Saddle pulmonary embolism. Endotracheal tube tip extends into the right mainstem bronchus. Retraction by couple of centimeters recommended Chema Freeman MD Head CT 08/27/17 0000 Signed Impressions: Service Date/Time: August 23:58 - CONCLUSION: No acute intracranial findings. Chema Freeman MD Objective Remarks GENERAL: Elderly male, lying in bed, intubated and sedated on propofol HEENT: Normocephalic. Atraumatic. Pupils are 5 mm, equal, round, nonreactive, conjugate. Mucous membranes are moist NECK: Trachea is midline. There is no JVD. CHEST: Chest x-ray clear to auscultation. Bilateral chest excursion mechanical ventilation FiO2. CARDIOVASCULAR: Sinus rhythm, S1-S2 ABDOMEN: Soft, nontender, nondistended. No guarding. MUSCULOSKELETAL: Pulses 2+. No peripheral edema. NEUROLOGICAL: GCS 3. Pulses above. Negative cough. Negative gag. Spontaneous eye opening. Left hand contracture, right hand mild squeeze when instructed A/P Assessment and Plan Assessment: 76-year-old male with out of hospital cardiac arrest and persistent hypoxic ischemic encephalopathy, found to have massive pulmonary embolus with hemodynamic collapse. Agree with systemic TPA. Ideally he would be a good therapy therapeutic hypothermia candidate as he will need neuro protection, however we cannot do this due to his lytic therapy. We will target 36 in a targeted temperature therapy manner in order to prevent hyperthermia without the bleeding risks associated with full therapeutic hypothermia. He remains very critically ill at very high risk of sudden cardiac from his massive PE. Plan by systems: Neurologic: Hypoxic ischemic encephalopathy Frequent neuro checks Propofol and fentanyl for goal RASS -2 Avoid long-acting sedatives Continues on low-dose propofol for ventilator synchrony Respiratory: Acute hypoxic and hypercarbic respiratory failure Massive saddle pulmonary embolus Intubation noted right mainstem bronchus Vent bundle Head of bed at 30 Nebs Wean FiO2 for goal SPO2 greater than 90% 08/28 Systemic TPA, 100 mg, followed by heparin infusion Cardiovascular: Massive saddle pulmonary embolism Out of hospital cardiac arrest Cardiogenic shock 2-D echo Systemic TPA, followed by heparin infusion 6 hours later Trend lactates Continue vasopressin 0.04 units per minute Wean levophed as tolerated for goal map greater than 65 Renal: Acute kidney injury superimposed on chronic kidney disease, unknown stage Place Perez for accurate I's and O's -- Strict I/Os FEN/GI: Acute protein calorie malnutrition- moderate Nothing by mouth Maintenance fluids ICU electrolyte protocol Daily BMP Heme/ID: 100 mg systemic TPA for massive pulmonary embolus. Continue heparin drip, monitor PTT per protocol Obtain CBC, monitor hemoglobin every 12 hours Endocrine: Hyperglycemia of critical illness -- SSI, every 6, medium scale Prophylaxis: GI Prophylaxis Pepcid IV DVT Prophylaxis -- SCDs TPA followed by systemic heparin drip Lines: 08/27 radial arterial line placed by the emergency room physician Ideally the patient will need central access, however TPA was initiated prior to central access being obtained. We will use peripheral IVs 16-gauge and monitor the vasopressors closely. Ana Dispo: To ICU. Critically ill. This patient remains critically ill with one or more organ systems which are or may become a threat to life. I have spent in excess of 30 minutes discontinuously in the care and management of this patient. This time is exclusive of procedures, and includes, but is not limited to, evaluation of the patient, review of the medical record, discussions with family, consultants, nursing staff, or respiratory therapy, and documentation in the medical record. Physician Ronda Castillo MD Aug 29, 2017 17:06
[2017-08-29 19:22] LABS: HEMATOCRIT 26.5 % (39.0-51.0); HEMOGLOBIN 8.8 GM/DL (13.0-17.0)
[2017-08-30] VITALS (29 sets, daily range): BP systolic 90–163; BP diastolic 56–85; PULSE 108–126; RESP 12–22; TEMP 97.5–99.9; O2SAT 96–100
--- NOTE | 2017-08-30 01:29 | PD.PROCEDR ---
Procedure Note Procedure Central Line Procedure Note Left femoral 7 Divehi 20 cm triple lumen catheter Diagnosis: Massive pulmonary embolism Indications: For highly potent vasoactive substances. This patient is a 76-year -old male who is status post TPA approximately 36 hours ago. He is in need of vasopressors. He has had bilateral upper extremity peripheral IV infiltrations with norepinephrine. He is still oozing from ET tube in other sites. He is highly coagulopathy. However, given his infiltration of highly potent vasoactive substances, the risks now outweighs the benefits of peripheral norepinephrine, and central access must be obtained. Femoral site was chosen so that it can be compressible with a sandbag if bleeding continues. Consent: Emergent Anesthesia: Lidocaine locally Description of the Procedure: The patient was placed in the supine, mild- Trendelenburg position. The area was prepped and draped sterilely. A 19g needle was inserted under negative pressure aspiration and dark venous blood was obtained. A guidewire was inserted easily without resistance. A small incision was made using a #11 blade. Using a modified Seldinger technique, the dilator and 7 Divehi, 20 cm catheter were advanced over the guidewire without resistance. All ports were aspirated and flushed, and had brisk blood return. The line was secured at 20 cm at the skin using 2-0 silk interrupted sutures. A Biopatch and Transparent sterile dressing were applied. There were no immediate complications noted. There was minimal EBL. The patient tolerated the procedure well. Ultrasound Guidance: Ultrasound guidance was used to identify the left femoral vein. The vascular anatomy was normal. The vessel was cannulated under direct , real-time ultrasound visualization. After placement of the guidewire, confirmation of the guidewire in the lumen of the vessel was made using ultrasound visualization, before dilation of the tract. I personally performed the procedure. Stevo Noriega MD Aug 30, 2017 01:29
[2017-08-30 01:54] LABS: HEMATOCRIT 25.1 % (39.0-51.0); HEMOGLOBIN 8.3 GM/DL (13.0-17.0)
[2017-08-30] MEDS: VASOPRESSIN INJ 40 UNITS in DEXTROSE 5% IN WATER 100ML INJ 98 ML IV SCH ×4 (02:30→19:10)
[2017-08-30] MEDS: RESP: ALBUTEROL 2.5 MG/IPRATROPIUM 0.5 MG NEB (SCH) INH ×4 (03:35→21:16)
[2017-08-30] MEDS: CHLORHEXIDINE GLUCONATE 2 % 1 PACK (2 CLOTHS) TOP SCH (04:00)
[2017-08-30 05:09] LABS: HEMATOCRIT 23.4 % (39.0-51.0); HEMOGLOBIN 7.6 GM/DL (13.0-17.0); MEAN CELL VOLUME 86.7 FL (80.0-100.0); MEAN CORPUSCULAR HEMOGLOBIN 28.3 PG (27.0-34.0); MEAN CORPUSCULAR HGB CONC 32.6 % (32.0-36.0); MEAN PLATELET VOLUME 11.4 FL (7.0-11.0); PLATELET COUNT 87 TH/MM3 (150-450); RED CELL DISTRIBUTION WIDTH 16.5 % (11.6-17.2); WHITE BLOOD COUNT 18.5 TH/MM3 (4.0-11.0)
[2017-08-30 05:34] LABS: CALCIUM 7.4 MG/DL (8.5-10.1); CREATININE 0.92 MG/DL (0.60-1.30)
[2017-08-30 05:54] LABS: CALCIUM-PROTEIN CORRECTED 8.5 MG/DL (8.5-10.1); TOTAL PROTEIN 5.1 GM/DL (6.4-8.2)
[2017-08-30] MEDS: INSULIN NovoLIN REGULAR SUPPLEMENTAL SCALE SQ SCH ×4 (06:00→17:20)
--- NOTE | 2017-08-30 06:33 | RADRPT ---
EXAM DATE/TIME: 08/30/2017 04:20 [facility] COMPARISON: CHEST SINGLE AP, August 29, 2017, 3:34. INDICATIONS : Shortness of breath, possible pulmonary disease. MEDICAL HISTORY : None. SURGICAL HISTORY : None. ENCOUNTER: Subsequent ACUITY: 4 - 6 days PAIN SCORE: Non-responsive. LOCATION: Bilateral chest FINDINGS: Endotracheal tube and nasogastric tube are stable. Mild right perihilar and left base parenchymal opa cities persist. Cardiac contours are grossly unchanged. CONCLUSION: Stable chest appearance Chema Freeman MD on August 30, 2017 at 6:31 Board Certified Radiologist. This report was verified electronically.
[2017-08-30] MEDS: fentaNYL DRIP 250 ML IV PRN (06:53)
--- NOTE | 2017-08-30 08:24 | HHI.CCPN ---
Subjective Remarks/Hospital Course This is a 76-year-old male who presents as an out of hospital cardiac arrest. Per EMS report, there received a phone call for shortness of breath. When they arrived at the scene, patient had agonal respirations and was found to be in PEA. ACLS was initiated. Patient was given a total of 2 mg epinephrine, 1 amp of bicarbonate. ROSC was obtained momentarily, but PEA arrest ensued shortly after. A second round of ACLS by EMS, then ROSC was obtained again. The patient arrived to the emergency department with a pulse but severely hypotensive in shock. In emergency Department patient was started on norepinephrine.. CTA of the chest demonstrated massive saddle pulmonary embolism. Due to his hemodynamic instability, decision was made to pursue lytic therapy with systemic TPA. Patient is transferred to the ICU for ongoing care. I evaluated patient in the emergency department. Due to his clinical condition, no additional information is available from the patient. Subjective: 08/28: The patient continues on multiple vasopressors currently to maintain MAP greater than 65. OGT to low intermittent wall suction exhibiting bloody output. 08/29:The patient is opening eyes spontaneously. Continues on vasopressor support. OGT noted to have 400 cc of bloody output over the last 12 hours. Plan for every 12 hours serial hemoglobin. 08/30: Patient noted to have acute blood loss hemoglobin drop of 1 g/dL with trending H&H. Approximately 200- 400 cc gastric positive blood from OGT. OGT taken off suction, clamped. Heparin protocol placed on hold , patient may possibly need IVC filter in the future, if unable to continue anticoagulation. Hematology Oncology has been consulted .Patient to be transfused 2 units of packed red blood cells, Hemoccult, KUB pending. Patient noted to have recurrent multifocal PVCs this a.m. , electrolytes within normal limits. Patient is responsive this a.m. following commands Objective Vital Signs Date Time Temp Pulse Resp B/P (MAP) Pulse Ox O2 Delivery O2 Flow Rate FiO2 08/30/17 07:23 115 89/47 08/30/17 04:22 99 45 08/30/17 04:00 98.6 18 08/28/17 01:13 Ventilator 08/27/17 23:13 15.00 Intake and Output 08/30/17 08/30/17 08/31/17 08:00 16:00 00:00 Output Total 830 ml Balance -830 ml Result Diagram: 08/30/17 0430 08/30/17 0430 Other Results Laboratory Tests Test 08/29/17 17:00 Blood Gas Puncture Site ART LINE Blood Gas Patient Temperature 98.6 Blood Gas HCO3 21 mmol/L (22-26) Blood Gas Base Excess -5.1 mmol/L (-2-2) Blood Gas Oxygen Saturation 97 % (90-100) Arterial Blood pH 7.27 (7.380-7.420) Arterial Blood Partial Pressure CO2 47 mmHg (38-42) Arterial Blood Partial Pressure O2 139 mmHg (61-120) Arterial Blood Oxygen Content 12.3 Vol % (12.0-20.0) Arterial Blood Carboxyhemoglobin 0.4 % (0-4) Arterial Blood Methemoglobin 1.1 % (0-2) Blood Gas Hemoglobin 8.8 G/DL (12.0-16.0) Oxygen Delivery Device VENTILATOR Blood Gas Ventilator Setting PRVC/AC 16/550 Blood Gas Inspired Oxygen 45 % Imaging Last Impressions Chest X-Ray 08/27/172330 Signed Impressions: Service Date/Time: August 23:59 - CONCLUSION: Parenchymal opacity developing at the left lung base Chema Freeman MD CT Angiography 08/27/172330 Signed Impressions: Service Date/Time: Monday, August 28, 2017 00:01 - CONCLUSION: Saddle pulmonary embolism. Endotracheal tube tip extends into the right mainstem bronchus. Retraction by couple of centimeters recommended Chema Freeman MD Head CT 08/27/17 0000 Signed Impressions: Service Date/Time: August 23:58 - CONCLUSION: No acute intracranial findings. Chema Freeman MD Objective Remarks GENERAL: Elderly male, lying in bed, intubated and sedated on propofol HEENT: Normocephalic. Atraumatic. Pupils are 5 mm, equal, round, nonreactive, conjugate. Mucous membranes are moist NECK: Trachea is midline. There is no JVD. CHEST: Chest x-ray clear to auscultation. Bilateral chest excursion mechanical ventilation FiO2. CARDIOVASCULAR: Sinus rhythm, S1-S2 ABDOMEN: Soft, nontender, nondistended. No guarding. MUSCULOSKELETAL: Pulses 2+. No peripheral edema. NEUROLOGICAL: GCS 3. Pulses above. Negative cough. Negative gag. Spontaneous eye opening. Left hand contracture, right hand mild squeeze when instructed A/P Assessment and Plan Assessment: 76-year-old male with out of hospital cardiac arrest and persistent hypoxic ischemic encephalopathy, found to have massive pulmonary embolus with hemodynamic collapse. Agree with systemic TPA. Ideally he would be a good therapy therapeutic hypothermia candidate as he will need neuro protection, however we cannot do this due to his lytic therapy. We will target 36 in a targeted temperature therapy manner in order to prevent hyperthermia without the bleeding risks associated with full therapeutic hypothermia. He remains very critically ill at very high risk of sudden cardiac from his massive PE. Plan by systems: Neurologic: Hypoxic ischemic encephalopathy Frequent neuro checks Fentanyl for goal RASS -2 Avoid long-acting sedatives Continues on low-dose fentanyl for ventilator synchrony, propofol has been discontinued. Patient is alert and responding to commands Respiratory: Acute hypoxic and hypercarbic respiratory failure Massive saddle pulmonary embolus 08/28 Intubation noted right mainstem bronchus- retracted to 22cm Vent bundle Head of bed at 30 Nebs Wean FiO2 for goal SPO2 greater than 90% 08/28 Systemic TPA, 100 mg, followed by heparin infusion - 08/30 heparin infusion placed on hold secondary to possible GI bleed Cardiovascular: Massive saddle pulmonary embolism Out of hospital cardiac arrest Cardiogenic shock 2-D echo 08/27Systemic TPA, followed by heparin infusion 6 hours later (08/29 dc'd 2/2 decreased hemoglobin) Trend lactates Continue vasopressin 0.04 units per minute Wean Levophed as tolerated for goal map greater than 65-currently at 3 mcgs/min Renal: Acute kidney injury superimposed on chronic kidney disease, unknown stage Place Perez for accurate I's and O's -- Strict I/Os FEN/GI: Acute protein calorie malnutrition- moderate Nothing by mouth Maintenance fluids IV NS 84cc/hr Follow-up KUB ICU electrolyte protocol Daily BMP Heme/ID: 100 mg systemic TPA for massive pulmonary embolus. Continue heparin drip, monitor PTT per protocol- Placed on hold Obtain Hemoccult, follow-up KUB-consider CT of the abdomen and pelvis rule out retroperitoneal bleed Obtain CBC, monitor hemoglobin every 12 hours Hematology oncology consulted secondary to inability to anticoagulate may need IVC filter Obtain posttransfusion CBC, and coags Endocrine: Hyperglycemia of critical illness -- SSI, every 6, medium scale Prophylaxis: GI Prophylaxis Pepcid IV DVT Prophylaxis -- SCDs TPA followed by systemic heparin drip Lines: 08/27 radial arterial line placed by the emergency room physician 08/29 16 gauge IV infiltrated last evening . Central line placed left femoral TL Perez Dispo: Discussed with STEM ROLLER at bedside This patient remains critically ill with one or more organ systems which are or may become a threat to life. I have spent in excess of 39 minutes discontinuously in the care and management of this patient. This time is exclusive of procedures, and includes, but is not limited to, evaluation of the patient, review of the medical record, discussions with family, consultants, nursing staff, or respiratory therapy, and documentation in the medical record. Physician Ronda Castillo MD Aug 30, 2017 08:24
[2017-08-30 08:31] LABS: INTERNATIONAL NORMALIZED RATIO 1.1 RATIO; PROTHROMBIN TIME - PATIENT 11.2 SEC (9.8-11.6)
[2017-08-30] MEDS: DOCUSATE SODIUM 50 MG/SENNA 8.6 MG TAB PO SCH ×2 (08:46→21:30)
[2017-08-30] MEDS: CHLORHEXIDINE 0.12% (ORAL KIT) 15 ML CUP MT SCH ×2 (09:29→21:30)
[2017-08-30] MEDS: FAMOTIDINE 20 MG/2 ML VIAL IV PUSH SCH ×2 (09:29→21:30)
[2017-08-30] MEDS: SODIUM CHLOR 0.9% 1000 ML INJ 1,000 ML IV SCH ×2 (09:52→21:30)
[2017-08-30] MEDS ORDERED: BISACODYL 10 MG SUPP RECTAL ONE (10:15)
--- NOTE | 2017-08-30 10:24 | RADRPT ---
EXAM DATE/TIME: 08/30/2017 08:26 [facility] COMPARISON: No previous studies available for comparison. INDICATIONS : Blood Loss. MEDICAL HISTORY : None. SURGICAL HISTORY : None. ENCOUNTER: Subsequent ACUITY: 4 - 6 days PAIN SCORE: Non-responsive. LOCATION: Bilateral Abdomen. FINDINGS: Supine view of the abdomen was performed. The abdominal bowel gas pattern is normal. No abnormal ma sses, calcifications, or organomegaly is seen. Nasogastric tube across the GE junction. The osseous structures are unremarkable. On the left. CONCLUSION: Femoral line on the left, otherwise negative Dayton Rodriguez MD FACR on August 30, 2017 at 10:22 Board Certified Radiologist. This report was verified electronically.
--- NOTE | 2017-08-30 11:37 | RADRPT ---
EXAM DATE/TIME: 08/30/2017 10:45 [facility] COMPARISON: No previous studies available for comparison. INDICATIONS : Pulmonary embolism. MEDICAL HISTORY : Hypercholesterolemia. Hypertension. Prostate cancer. Renal failure. Kidney stones. SURGICAL HISTORY : Nephrectomy. ENCOUNTER: Initial ACUITY: 1 day PAIN SCORE: 6/10 LOCATION: Bilateral legs. TECHNIQUE: Venous ultrasound of the left and right leg was performed from the inguinal ligament to the proximal calf. Real-time, color Doppler and spectral tracing, compression and augmentation techniques were us ed. Exam is limited by the patient's body habitus. FINDINGS: RIGHT LEG: \Nonocclusive thrombus in the posterior tibial vein extending into the proximal superficial femoral v ein. Femoral vein the mid and distal above the knee is patent.. LEFT LEG: \Thrombus in the posterior tibial vein and superficial femoral vein. CONCLUSION: Venous thrombosis bilaterally as above. Dayton Rodriguez MD FACR on August 30, 2017 at 11:33 Board Certified Radiologist. This report was verified electronically.
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
[2017-08-30 16:53] LABS: ALBUMIN 2.3 GM/DL (3.4-5.0); BICARBONATE 22.4 MEQ/L (21.0-32.0); CALCIUM 7.4 MG/DL (8.5-10.1); CALCIUM-PROTEIN CORRECTED 8.6 MG/DL (8.5-10.1); CREATININE 0.91 MG/DL (0.60-1.30); TOTAL BILIRUBIN ADULT 1.3 MG/DL (0.2-1.0)
--- NOTE | 2017-08-30 21:10 | EKG ---
Date Performed: 08/30/2017 Time Performed: 16:09:44 PTAGE: 76 years EKG: Sinus tachycardia with PVC(s), Left axis deviation, Left anterior fascicular block, Nonspec ific T wave changes, Low QRS voltages in precordial leads Abnormal ECG NO PREVIOUS TRACING DOCTOR: Tk Schneider Interpretating Date/Time 08/30/2017 21:09:47
[2017-08-30] MEDS: NOREPINEPHRINE-DEXTROSE DRIP 250 ML IV PRN (21:31)
[2017-08-30 22:48] LABS: HEMATOCRIT 27.1 % (39.0-51.0); HEMOGLOBIN 9.2 GM/DL (13.0-17.0)
[2017-08-31] VITALS (21 sets, daily range): BP systolic 97–121; BP diastolic 48–73; PULSE 94–115; TEMP 98.6–99.5; O2SAT 95–100
[2017-08-31] MEDS: CHLORHEXIDINE GLUCONATE 2 % 1 PACK (2 CLOTHS) TOP SCH (04:00)
[2017-08-31] MEDS: RESP: ALBUTEROL 2.5 MG/IPRATROPIUM 0.5 MG NEB (SCH) INH ×4 (04:06→19:56)
[2017-08-31] MEDS: INSULIN NovoLIN REGULAR SUPPLEMENTAL SCALE SQ SCH ×4 (05:47→18:00)
[2017-08-31 05:55] LABS: HEMATOCRIT 25.4 % (39.0-51.0); HEMOGLOBIN 8.7 GM/DL (13.0-17.0); MEAN CELL VOLUME 83.6 FL (80.0-100.0); MEAN CORPUSCULAR HEMOGLOBIN 28.7 PG (27.0-34.0); MEAN CORPUSCULAR HGB CONC 34.3 % (32.0-36.0); MEAN PLATELET VOLUME 10.3 FL (7.0-11.0); PLATELET COUNT 80 TH/MM3 (150-450); RED BLOOD COUNT 3.03 MIL/MM3 (4.50-5.90); RED CELL DISTRIBUTION WIDTH 16.6 % (11.6-17.2); WHITE BLOOD COUNT 8.4 TH/MM3 (4.0-11.0)
[2017-08-31 06:15] LABS: BICARBONATE 20.5 MEQ/L (21.0-32.0); CALCIUM 7.4 MG/DL (8.5-10.1); CREATININE 0.84 MG/DL (0.60-1.30)
[2017-08-31 06:30] LABS: CALCIUM-PROTEIN CORRECTED 8.7 MG/DL (8.5-10.1); TOTAL PROTEIN 4.8 GM/DL (6.4-8.2)
[2017-08-31] MEDS: DOCUSATE SODIUM 50 MG/SENNA 8.6 MG TAB PO SCH ×2 (08:59→20:34)
[2017-08-31] MEDS: FAMOTIDINE 20 MG/2 ML VIAL IV PUSH SCH ×2 (08:59→20:35)
[2017-08-31] MEDS: CHLORHEXIDINE 0.12% (ORAL KIT) 15 ML CUP MT SCH ×2 (08:59→20:18)
--- NOTE | 2017-08-31 09:29 | HHI.CCPN ---
Subjective Remarks/Hospital Course This is a 76-year-old male who presents as an out of hospital cardiac arrest. Per EMS report, there received a phone call for shortness of breath. When they arrived at the scene, patient had agonal respirations and was found to be in PEA. ACLS was initiated. Patient was given a total of 2 mg epinephrine, 1 amp of bicarbonate. ROSC was obtained momentarily, but PEA arrest ensued shortly after. A second round of ACLS by EMS, then ROSC was obtained again. The patient arrived to the emergency department with a pulse but severely hypotensive in shock. In emergency Department patient was started on norepinephrine.. CTA of the chest demonstrated massive saddle pulmonary embolism. Due to his hemodynamic instability, decision was made to pursue lytic therapy with systemic TPA. Patient is transferred to the ICU for ongoing care. I evaluated patient in the emergency department. Due to his clinical condition, no additional information is available from the patient. Subjective: 08/28: The patient continues on multiple vasopressors currently to maintain MAP greater than 65. OGT to low intermittent wall suction exhibiting bloody output. 08/29:The patient is opening eyes spontaneously. Continues on vasopressor support. OGT noted to have 400 cc of bloody output over the last 12 hours. Plan for every 12 hours serial hemoglobin. 08/30: Patient noted to have acute blood loss hemoglobin drop of 1 g/dL with trending H&H. Approximately 200- 400 cc gastric positive blood from OGT. OGT taken off suction, clamped. Heparin protocol placed on hold , patient may possibly need IVC filter in the future, if unable to continue anticoagulation. Hematology Oncology has been consulted .Patient to be transfused 2 units of packed red blood cells, Hemoccult, KUB pending. Patient noted to have recurrent multifocal PVCs this a.m. , electrolytes within normal limits. Patient is responsive this a.m. following commands. 08/31: Tmax 99.9. The patient continued to have GI bleeding yesterday afternoon , Hemoccult was negative. Heparin was discontinued the patient received 2 units of packed red blood cells. Ultrasound bilateral lower extremities positive for thrombus. Hematology oncology was consulted, plan for IVC filter placement. The patient noted platelets decreasing HIT panel pending. Objective Vital Signs Date Time Temp Pulse Resp B/P (MAP) Pulse Ox O2 Delivery O2 Flow Rate FiO2 08/31/17 08:25 97 40 08/31/17 06:00 109 12/25/17 04:00 98.6 105/60 (75) 113/65 (81) 08/30/17 16:00 22 08/28/17 01:13 Ventilator 08/27/17 23:13 15.00 Intake and Output 08/31/17 08/31/17 09/01/17 08:00 16:00 00:00 Output Total 850 ml Balance -850 ml Result Diagram: 08/31/17 0535 08/31/17 0535 Other Results Microbiology Date/Time Source Procedure Growth Status 08/30/17 09:54 Stool Stool Stool Occult Blood (JORI) - Final HEMOCCULT NEGATIVE Complete Laboratory Tests Test 08/31/17 08:49 Blood Gas Puncture Site ART LINE Blood Gas Patient Temperature 98.6 Blood Gas HCO3 20 mmol/L (22-26) Blood Gas Base Excess -4.7 mmol/L (-2-2) Blood Gas Oxygen Saturation 96 % (90-100) Arterial Blood pH 7.36 (7.380-7.420) Arterial Blood Partial Pressure CO2 36 mmHg (38-42) Arterial Blood Partial Pressure O2 120 mmHg (61-120) Arterial Blood Oxygen Content 12.1 Vol % (12.0-20.0) Arterial Blood Carboxyhemoglobin 0.8 % (0-4) Arterial Blood Methemoglobin 1.3 % (0-2) Blood Gas Hemoglobin 8.7 G/DL (12.0-16.0) Oxygen Delivery Device VENTILATOR Blood Gas Ventilator Setting PRVC/AC 550/18 Blood Gas Inspired Oxygen 40 % Imaging Last Impressions Chest X-Ray 08/27/172330 Signed Impressions: Service Date/Time: August 23:59 - CONCLUSION: Parenchymal opacity developing at the left lung base Chema Freeman MD CT Angiography 08/27/172330 Signed Impressions: Service Date/Time: Monday, August 28, 2017 00:01 - CONCLUSION: Saddle pulmonary embolism. Endotracheal tube tip extends into the right mainstem bronchus. Retraction by couple of centimeters recommended Chema Freeman MD Head CT 08/27/17 0000 Signed Impressions: Service Date/Time: August 23:58 - CONCLUSION: No acute intracranial findings. Chema Freeman MD Objective Remarks GENERAL: Elderly male, lying in bed, intubated and sedated on low-dose Fentanyl HEENT: Normocephalic. Atraumatic. Pupils are 5 mm, equal, round, nonreactive, conjugate. Mucous membranes are moist NECK: Trachea is midline. There is no JVD. CHEST: Chest x-ray clear to auscultation. Bilateral chest excursion mechanical ventilation FiO2. CARDIOVASCULAR: Sinus rhythm, S1-S2 ABDOMEN: Soft, nontender, nondistended. No guarding. MUSCULOSKELETAL: Pulses 2+. No peripheral edema. NEUROLOGICAL: GCS 3. Pulses above. Negative cough. Negative gag. Spontaneous eye opening. Nodding head yes and no to questions .Left hand contracture, right hand mild squeeze when instructed A/P Assessment and Plan Assessment: 76-year-old male with out of hospital cardiac arrest and persistent hypoxic ischemic encephalopathy, found to have massive pulmonary embolus with hemodynamic collapse. Agree with systemic TPA. Ideally he would be a good therapy therapeutic hypothermia candidate as he will need neuro protection, however we cannot do this due to his lytic therapy. We will target 36 in a targeted temperature therapy manner in order to prevent hyperthermia without the bleeding risks associated with full therapeutic hypothermia. He remains very critically ill at very high risk of sudden cardiac from his massive PE. Plan by systems: Neurologic: Hypoxic ischemic encephalopathy Frequent neuro checks Fentanyl for goal RASS -2 Avoid long-acting sedatives Continues on low-dose fentanyl for ventilator synchrony, propofol has been discontinued. Patient is alert and responding to commands Respiratory: Acute hypoxic and hypercarbic respiratory failure Massive saddle pulmonary embolus 08/28 Intubation noted right mainstem bronchus- retracted to 22cm Vent bundle Head of bed at 30 Nebs Wean FiO2 for goal SPO2 greater than 90% 08/28 Systemic TPA, 100 mg, followed by heparin infusion - 08/30 heparin infusion placed on hold secondary to GI bleed 08/31- ABG 7.36/35/120/19/-4.7 on FIO2 .35% 08/31 Plan for IVC filter placement-IR has been consulted Cardiovascular: Massive saddle pulmonary embolism Out of hospital cardiac arrest Cardiogenic shock 2-D echo 08/27Systemic TPA, followed by heparin infusion 6 hours later (08/29 dc'd 2/2 decreased hemoglobin, and GI bleed) Trend lactates Wean Levophed as tolerated for goal MAP greater than 65-currently at 2 mcgs/min Renal: Acute kidney injury superimposed on chronic kidney disease, unknown stage Place Perez for accurate I's and O's -- Strict I/Os FEN/GI: Acute protein calorie malnutrition- moderate GI bleed Nothing by mouth Clamp NG tube Maintenance fluids IV NS 84cc/hr 08/30 KUB-negative for abnormality Replete electrolytes per ICU protocol Monitor BMP Heme/ID: Thrombocytopenia Acute blood loss anemia 2/2 GIB 100 mg systemic TPA for massive pulmonary embolus. 08/30- heparin drip. Placed on hold 08/30- Hemoccult-negative Monitor CBC, monitor hemoglobin every 12 hours Hematology oncology - recommendation for IVC filter Platelet count downtrending 87->80, HIT panel pending 08/30 Blood [id number] cocci 08/30 Sputum culture-pending 08/31-Vancomycin and cefepime initiated Endocrine: Hyperglycemia of critical illness -- SSI, every 6, medium scale Prophylaxis: GI Prophylaxis Pepcid IV DVT Prophylaxis -- No SCDs-bilateral thrombus S/P TPA followed by heparin infusion, now discontinue secondary to acute blood loss anemia. Platelet count 80 Lines: 08/27 radial arterial line placed by the emergency room physician 08/29 16 gauge IV infiltrated last evening . Central line placed left femoral TL Perez Dispo: Discussed with MOBILE THERAPIST at bedside. Spoke telephonically to patient's daughter, Ms. Carlee Zazueta and updated her on patient's medical status This patient remains critically ill with one or more organ systems which are or may become a threat to life. I have spent in excess of 41 minutes discontinuously in the care and management of this patient. This time is exclusive of procedures, and includes, but is not limited to, evaluation of the patient, review of the medical record, discussions with family, consultants, nursing staff, or respiratory therapy, and documentation in the medical record. Physician Ronda Castillo MD Aug 31, 2017 09:29
[2017-08-31] MEDS ORDERED: Vancomycin Consult Pharmacy 1 EA OTHER PRN (09:30)
[2017-08-31] MEDS: SODIUM CHLOR 0.9% 1000 ML INJ 1,000 ML IV SCH (09:31)
[2017-08-31] MEDS: CEFEPIME INJ 2,000 MG in SODIUM CHLORIDE 0.9% INJ 100 ML IV SCH ×2 (10:18→17:33)
[2017-08-31] MEDS ORDERED: VANCOMYCIN INJ 1,750 MG in SODIUM CHLORID 0.9% 500 ML INJ 500 ML IV ONE (11:00)
[2017-08-31] MEDS: PHENYLEPHRINE 40 MG in D5W 500 ML IV PRN (11:21)
[2017-08-31] MEDS: VASOPRESSIN INJ 40 UNITS in DEXTROSE 5% IN WATER 100ML INJ 98 ML IV SCH ×2 (11:50)
--- NOTE | 2017-08-31 13:17 | PD.CONS ---
HPI History of Present Illness This is a 76 year old male who presented after cardiac arrest. he was having SOB. EMS found him with PEA, eventually achieved ROSC. Pt was found to have massive saddle PE and is s/p TPA. Has DVT as well. was on heparin gtt but that was stopped. GI has been consulted for GIB. 3 days ago he began having bloody output from OGT and drop in hgb. His PLT decreasing also. he is to have an IVC filter and not good candidate for anticoag. (Maria Stover) PFSH Past Medical History unk Past Surgical History unk (Maria Stover) Coded Allergies: No Known Allergies (Verified Allergy, Unknown, 07/24/17) Family History unk Social History unk (Maria Stover) Review of Systems ROS noncontributory (Maria Stover) GI Exam Vitals I&O Vital Signs Date Time Temp Pulse Resp B/P (MAP) Pulse Ox O2 Delivery O2 Flow Rate FiO2 08/31/17 11:44 100 40 08/31/17 11:21 109/59 08/31/17 08:25 97 40 08/31/17 06:00 109 08/31/17 04:04 98 40 08/31/17 04:00 98.6 112 105/60 (75) 97 113/65 (81) 08/31/17 04:00 112 08/31/17 04:00 40 08/31/17 02:00 112 08/31/17 02:00 112 08/31/17 00:00 40 08/31/17 00:00 99.5 112 97/57 (70) 98 112/60 (77) 08/31/17 00:00 112 08/30/17 22:46 97 40 08/30/17 22:15 115 08/30/17 22:00 115 08/30/17 21:31 111 95/57 08/30/17 20:40 97 40 08/30/17 20:00 99.9 116 90/56 (67) 96 106/61 (76) 08/30/17 20:00 116 08/30/17 20:00 40 08/30/17 18:15 99.1 109 98/59 98 08/30/17 18:00 110 08/30/17 16:52 99 45 08/30/17 16:00 45 08/30/17 16:00 121 08/30/17 16:00 98.8 121 22 110/64 (79) 99 111/72 (85) 08/30/17 15:00 118 22 107/64 (78) 100 113/63 (80) 08/30/17 14:14 98.7 117 22 111/66 100 08/30/17 14:00 110 22 105/60 (75) 100 98/62 (74) 08/30/17 14:00 110 08/30/17 13:59 98.5 110 18 111/59 100 08/30/17 13:50 98.5 113 21 113/63 100 I/O 08/30/17 08/30/17 08/30/17 08/31/17 08/31/17 08/31/17 07:00 15:00 23:00 07:00 15:00 23:00 Intake Total 460 ml 1600 ml Output Total 830 ml 375 ml 850 ml Balance -830 ml 460 ml 1225 ml -850 ml Intake IV Total 1000 ml Packed Cells 400 ml 400 ml Blood Product IV Normal Saline Flush 60 ml Other 200 ml Output Urine Total 480 ml 350 ml 850 ml Stool Total 0 ml Gastric Drainage Total 350 ml 25 ml # Bowel Movements 0 Imaging Last Impressions Chest X-Ray 08/30/17 0600 Signed Impressions: Service Date/Time: Wednesday, August 30, 2017 04:20 - CONCLUSION: Stable chest appearance Chema Freeman MD Lower Extremity Ultrasound 08/30/17 0000 Signed Impressions: Service Date/Time: Wednesday, August 30, 2017 10:45 - CONCLUSION: Venous thrombosis bilaterally as above. Dayton Rodriguez MD FACR Abdomen X-Ray 08/30/17 0000 Signed Impressions: Service Date/Time: Wednesday, August 30, 2017 08:26 - CONCLUSION: Femoral line on the left, otherwise negative Dayton Rodriguez MD FACR CT Angiography 08/27/17 2331 Signed Impressions: Service Date/Time: Monday, August 28, 2017 00:01 - CONCLUSION: Saddle pulmonary embolism. Endotracheal tube tip extends into the right mainstem bronchus. Retraction by couple of centimeters recommended Chema Freeman MD Head CT 08/27/17 0000 Signed Impressions: Service Date/Time: August 23:58 - CONCLUSION: No acute intracranial findings. Chema Freeman MD Laboratory Test 08/30/17 16:09 08/30/17 22:25 08/31/17 05:35 08/31/17 08:49 Blood Urea Nitrogen 29 MG/DL 26 MG/DL Creatinine 0.91 MG/DL 0.84 MG/DL Random Glucose 94 MG/DL 107 MG/DL Total Protein 5.0 GM/DL 4.8 GM/DL Albumin 2.3 GM/DL Calcium Level 7.4 MG/DL 7.4 MG/DL Alkaline Phosphatase 61 U/L Aspartate Amino Transf (AST/SGOT) 41 U/L Alanine Aminotransferase (ALT/SGPT) 102 U/L Total Bilirubin 1.3 MG/DL Sodium Level 145 MEQ/L 146 MEQ/L Potassium Level 4.4 MEQ/L 4.1 MEQ/L Chloride Level 114 MEQ/L 115 MEQ/L Carbon Dioxide Level 22.4 MEQ/L 20.5 MEQ/L Anion Gap 9 MEQ/L 11 MEQ/L Estimat Glomerular Filtration Rate 81 ML/MIN 89 ML/MIN Protein Corrected Calcium 8.6 MG/DL 8.7 MG/DL Hemoglobin 9.2 GM/DL 8.7 GM/DL Hematocrit 27.1 % 25.4 % White Blood Count 8.4 TH/MM3 Red Blood Count 3.03 MIL/MM3 Mean Corpuscular Volume 83.6 FL Mean Corpuscular Hemoglobin 28.7 PG Mean Corpuscular Hemoglobin Concent 34.3 % Red Cell Distribution Width 16.6 % Platelet Count 80 TH/MM3 Mean Platelet Volume 10.3 FL Activated Partial Thromboplast Time 27.5 SEC Blood Gas Puncture Site ART LINE Blood Gas Patient Temperature 98.6 Blood Gas HCO3 20 mmol/L Blood Gas Base Excess -4.7 mmol/L Blood Gas Oxygen Saturation 96 % Arterial Blood pH 7.36 Arterial Blood Partial Pressure CO2 36 mmHg Arterial Blood Partial Pressure O2 120 mmHg Arterial Blood Oxygen Content 12.1 Vol % Arterial Blood Carboxyhemoglobin 0.8 % Arterial Blood Methemoglobin 1.3 % Blood Gas Hemoglobin 8.7 G/DL Oxygen Delivery Device VENTILATOR Blood Gas Ventilator Setting PRVC/AC 550/18 Blood Gas Inspired Oxygen 40 % Test 08/31/17 09:00 08/31/17 10:00 Magnesium Level 2.1 MG/DL Date/Time Source Procedure Growth Status 08/30/17 04:30 Blood Peripheral Aerobic Blood Culture - Preliminary Staph Sp Coagulase Negative Resulted 08/30/17 04:30 Anaerobic Blood Culture - Preliminary Gram Positive Cocci Resulted 08/30/17 09:54 Stool Stool Stool Occult Blood (JORI) - Final HEMOCCULT NEGATIVE Complete 08/30/17 08:30 Sputum Endotracheal Gram Stain - Final Resulted 08/30/17 08:30 Sputum Endotracheal Sputum Culture - Preliminary HEAVY GROWTH NORMAL RESPIRATORY ARTHUR... Resulted Physical Examination HEENT: normocephalic; atraumatic; no jaundice. intubated OGT clamped, no blood seen in tube CHEST: CTA CARDIAC: irregular rate and rhythm ABDOMEN: Soft, nondistended, nontender; no hepatosplenomegaly; bowel sounds are present in all four quadrants. EXTREMITIES: No clubbing, cyanosis, + BUE edema SKIN: Normal; no rash; no jaundice. NEWSPAPER COPY EDITOR: awake, lethargic. (Maria Stover) Assessment and Plan Plan ASSESSMENT - bloody output OGT - anemia with drop in HH - since admission, normocytic, likely 2/2 above was given TPA. was on heparin but that is stopped hematology on case. IR consult for IVC filter placed - thrombocytopenia - worsening. HIT panel pending hem onc following - saddle PE, DVT, hypoxic ischemic encephalopathy, respiratory failure per [facility] PLAN - EGD after IVC filter placed - monitor CBC - transfuse as needed - supportive care - further recs to follow This pt seen by myself and Dr Abdi and this note is written on his behalf (Maria Stover) Physician Comments Agree with above assessment and plan. Will follow up with you. (Mali Abdi MD) Maria Stover Aug 31, 2017 13:17 Mali Abdi MD Aug 31, 2017 13:44
[2017-09-01] VITALS (25 sets, daily range): BP systolic 105–140; BP diastolic 60–85; PULSE 83–105; TEMP 97.8–99.3; O2SAT 97–100
[2017-09-01] MEDS: SODIUM CHLOR 0.9% 1000 ML INJ 1,000 ML IV SCH ×2 (00:19→09:59)
[2017-09-01] MEDS: CEFEPIME INJ 2,000 MG in SODIUM CHLORIDE 0.9% INJ 100 ML IV SCH ×3 (02:58→18:16)
[2017-09-01] MEDS: RESP: ALBUTEROL 2.5 MG/IPRATROPIUM 0.5 MG NEB (SCH) INH (03:32)
[2017-09-01] MEDS: CHLORHEXIDINE GLUCONATE 2 % 1 PACK (2 CLOTHS) TOP SCH (04:00)
[2017-09-01 04:24] LABS: HEMATOCRIT 24.6 % (39.0-51.0); HEMOGLOBIN 8.4 GM/DL (13.0-17.0); MEAN CELL VOLUME 84.1 FL (80.0-100.0); MEAN CORPUSCULAR HEMOGLOBIN 28.9 PG (27.0-34.0); MEAN CORPUSCULAR HGB CONC 34.4 % (32.0-36.0); MEAN PLATELET VOLUME 9.3 FL (7.0-11.0); PLATELET COUNT 79 TH/MM3 (150-450); RED BLOOD COUNT 2.92 MIL/MM3 (4.50-5.90); RED CELL DISTRIBUTION WIDTH 16.7 % (11.6-17.2); WHITE BLOOD COUNT 10.7 TH/MM3 (4.0-11.0)
[2017-09-01] MEDS: VASOPRESSIN INJ 40 UNITS in DEXTROSE 5% IN WATER 100ML INJ 98 ML IV SCH ×2 (04:30)
[2017-09-01 04:38] LABS: BICARBONATE 23.1 MEQ/L (21.0-32.0); CALCIUM 7.4 MG/DL (8.5-10.1); CREATININE 0.68 MG/DL (0.60-1.30); MAGNESIUM 1.9 MG/DL (1.5-2.5); PHOSPHORUS 1.3 MG/DL (2.5-4.9)
[2017-09-01 04:53] LABS: CALCIUM-PROTEIN CORRECTED 8.8 MG/DL (8.5-10.1); TOTAL PROTEIN 4.7 GM/DL (6.4-8.2)
--- NOTE | 2017-09-01 05:09 | RADRPT ---
EXAM DATE/TIME: 09/01/2017 03:21 [facility] COMPARISON: CHEST SINGLE AP, August 30, 2017, 4:20. INDICATIONS : Short of breath. MEDICAL HISTORY : None. SURGICAL HISTORY : None. ENCOUNTER: Subsequent ACUITY: 4 - 6 days PAIN SCORE: 0/10 LOCATION: Bilateral chest FINDINGS: ET tube, and NG tube have not changed. Left basilar opacity is present may be due to a combination of consolidation and or pleural effusion. Mild perivascular pulmonary edema is also suspected. CONCLUSION: Left basilar opacity is present may be due to a combination of consolidation and or pleural effusion and probable mild pulmonary edema. Omid Villa MD on September 01, 2017 at 5:07 Board Certified Radiologist. This report was verified electronically.
[2017-09-01] MEDS: INSULIN NovoLIN REGULAR SUPPLEMENTAL SCALE SQ SCH ×4 (05:38→18:00)
[2017-09-01] MEDS: FAMOTIDINE 20 MG/2 ML VIAL IV PUSH SCH ×2 (08:33→20:29)
[2017-09-01] MEDS: DOCUSATE SODIUM 50 MG/SENNA 8.6 MG TAB PO SCH ×2 (08:33→20:29)
[2017-09-01] MEDS: CHLORHEXIDINE 0.12% (ORAL KIT) 15 ML CUP MT SCH ×2 (08:34→20:29)
[2017-09-01] MEDS: PHENYLEPHRINE 40 MG in D5W 500 ML IV PRN (09:59)
[2017-09-01] MEDS ORDERED: POTASSIUM PHOSPHATE INJ 15 MMOL in SODIUM CHLORIDE 0.9% INJ 150 ML IV ONE (11:00)
[2017-09-01] MEDS: VANCOMYCIN 1,500 MG/NS 500 ML IV SCH ×2 (11:00)
[2017-09-01] MEDS ORDERED: IOHEXOL 350 MG/ML 50 ML BTL (for RAD DIAG) OTHER ONE (11:29)
--- NOTE | 2017-09-01 12:28 | PD.RAD ---
Post Procedure Progress Note Pre Procedure Diagnosis: (1) Acute saddle pulmonary embolism Post Procedure Diagnosis: (1) Acute saddle pulmonary embolism Procedure Date: Sep 01, 2017 Supervising Radiologist: Chema Freeman Proceduralist/Assist: Olga Lam RT(R)(CV) Estimated blood loss: none Anesthesia: Local, Conscious Sedation Plan of Activity Patient to Unit: Nursing Unit Patient Condition: Fair See PACS Report for procedural detail/treatment Vascular-Venous Procedure Procedure 1 Procedure(s): Permanent IVC Filter Access Access Site(s): Right Jugular Vein Closure Site(s): Right vascular closure device Chema Freeman MD Sep 01, 2017 12:28
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
[2017-09-01] MEDS: DEXTROSE 5% IN WATE 1000ML INJ 1,000 ML IV SCH (13:57)
[2017-09-01 14:11] LABS: HEPARIN INDUCED PLATELET AB NEGATIVE (NEGATIVE)
--- NOTE | 2017-09-01 14:54 | HHI.GIFU ---
Subjective Remarks still requiring mechanical ventilation. Random opens eyes to voice. pale mucous membranes (Tigist Covarrubias) Objective Vitals I&O Vital Signs Date Time Temp Pulse Resp B/P (MAP) Pulse Ox O2 Delivery O2 Flow Rate FiO2 09/01/17 13:20 128/73 09/01/17 13:00 92 140/85 (103) 100 09/01/17 12:45 83 126/77 (93) 100 09/01/17 12:30 86 126/75 (92) 100 09/01/17 12:15 91 127/77 (94) 100 09/01/17 12:00 98.7 84 121/64 (83) 100 111/65 (80) 09/01/17 11:45 89 123/72 (89) 100 120/72 (88) 09/01/17 11:40 91 121/72 (88) 99 115/69 (84) 09/01/17 11:35 85 124/73 (90) 100 116/72 (87) 09/01/17 11:30 88 129/78 (95) 100 124/79 (94) 09/01/17 10:00 90 121/69 (86) 99 105/73 (84) 09/01/17 09:59 120/70 09/01/17 09:45 100 100 09/01/17 09:39 100 40 09/01/17 09:00 89 111/65 (80) 100 106/65 (79) 09/01/17 08:00 98.0 96 113/63 (80) 98 114/76 (89) 09/01/17 06:00 105 09/01/17 05:38 99 120/65 09/01/17 04:38 97 40 09/01/17 04:00 40 09/01/17 04:00 99 09/01/17 04:00 99.1 99 115/64 (81) 99 105/67 (80) 09/01/17 02:00 98 09/01/17 01:27 97 40 09/01/17 00:00 93 09/01/17 00:00 40 09/01/17 00:00 99.3 93 115/66 (82) 98 113/72 (86) 08/31/17 22:25 98 40 08/31/17 22:00 95 08/31/17 21:43 92 89/54 08/31/17 21:22 97 112/71 08/31/17 20:39 96 121/69 08/31/17 20:00 98.7 94 120/70 (87) 99 116/73 (87) 08/31/17 20:00 94 08/31/17 20:00 40 08/31/17 19:50 98 40 08/31/17 19:00 96 123/69 08/31/17 16:00 40 08/31/17 16:00 98.6 101 118/67 (84) 99 108/67 (81) 08/31/17 15:13 98 40 08/31/17 15:00 115 114/65 (81) 96 108/67 (81) I/O 08/31/17 08/31/17 08/31/17 09/01/17 09/01/17 09/01/17 07:00 15:00 23:00 07:00 15:00 23:00 Intake Total 952.5 ml 964 ml 1433.4 ml 823 ml Output Total 850 ml 650 ml 550 ml Balance -850 ml 952.5 ml 314 ml 883.4 ml 823 ml Intake IV Total 952.5 ml 964 ml 1433.4 ml 823 ml Output Urine Total 850 ml 650 ml 550 ml # Bowel Movements 2 1 Laboratory Laboratory Tests Test 09/01/17 03:15 09/01/17 04:02 White Blood Count 10.7 Red Blood Count 2.92 Hemoglobin 8.4 Hematocrit 24.6 Mean Corpuscular Volume 84.1 Mean Corpuscular Hemoglobin 28.9 Mean Corpuscular Hemoglobin Concent 34.4 Red Cell Distribution Width 16.7 Platelet Count 79 Mean Platelet Volume 9.3 Blood Urea Nitrogen 20 Creatinine 0.68 Random Glucose 88 Total Protein 4.7 Calcium Level 7.4 Phosphorus Level 1.3 Magnesium Level 1.9 Sodium Level 150 Potassium Level 3.6 Chloride Level 119 Carbon Dioxide Level 23.1 Anion Gap 8 Estimat Glomerular Filtration Rate 113 Protein Corrected Calcium 8.8 Blood Gas Puncture Site ART LINE Blood Gas Patient Temperature 98.6 Blood Gas HCO3 21 Blood Gas Base Excess -3.6 Blood Gas Oxygen Saturation 97 Arterial Blood pH 7.39 Arterial Blood Partial Pressure CO2 35 Arterial Blood Partial Pressure O2 124 Arterial Blood Oxygen Content 11.6 Arterial Blood Carboxyhemoglobin 0.8 Arterial Blood Methemoglobin 1.3 Blood Gas Hemoglobin 8.3 Oxygen Delivery Device VENTILATOR Blood Gas Ventilator Setting PRVC18/550/1.0/+5 Blood Gas Inspired Oxygen 40 Date/Time Source Procedure Growth Status 08/30/17 04:30 Blood Peripheral Aerobic Blood Culture - Preliminary Staph Sp Coagulase Negative Resulted 08/30/17 04:30 Anaerobic Blood Culture - Preliminary Staph Sp Coagulase Negative Resulted 08/30/17 09:54 Stool Stool Stool Occult Blood (JORI) - Final HEMOCCULT NEGATIVE Complete 08/30/17 08:30 Sputum Endotracheal Gram Stain - Final Complete 08/30/17 08:30 Sputum Endotracheal Sputum Culture - Final HEAVY GROWTH NORMAL RESPIRATORY ARTHUR Complete Imaging Last Impressions Chest X-Ray 09/01/17 0600 Signed Impressions: Service Date/Time: Friday, September 01, 2017 03:21 - CONCLUSION: Left basilar opacity is present may be due to a combination of consolidation and or pleural effusion and probable mild pulmonary edema. Omid Villa MD IVC Filter Placement X-Ray 09/01/17 0000 Signed Impressions: Service Date/Time: Friday, September 01, 2017 10:18 - CONCLUSION: Uncomplicated inferior vena cava filter placement as above. Chema Freeman MD Lower Extremity Ultrasound 08/30/17 0000 Signed Impressions: Service Date/Time: Wednesday, August 30, 2017 10:45 - CONCLUSION: Venous thrombosis bilaterally as above. Dayton Rodriguez MD FACR Abdomen X-Ray 08/30/17 0000 Signed Impressions: Service Date/Time: Wednesday, August 30, 2017 08:26 - CONCLUSION: Femoral line on the left, otherwise negative Dayton Rodriguez MD FACR CT Angiography 08/27/17 2331 Signed Impressions: Service Date/Time: Monday, August 28, 2017 00:01 - CONCLUSION: Saddle pulmonary embolism. Endotracheal tube tip extends into the right mainstem bronchus. Retraction by couple of centimeters recommended Chema Freeman MD Head CT 08/27/17 0000 Signed Impressions: Service Date/Time: August 23:58 - CONCLUSION: No acute intracranial findings. Chema Freeman MD Physical Exam HEENT: Pupils round and reactive to light, ETT NECK: Neck is supple, no JVD, no lymphadenopathy. CHEST: Chest decreased BS and few rhonchi CARDIAC: Regular rate and rhythm ABDOMEN: taut, nondistended, nontender to lt. palpation; no hepatosplenomegaly ; bowel sounds soft, hypoactive EXTREMITIES: No clubbing, cyanosis, or edema. SKIN: Normal; no rash; no jaundice. 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 IR consult for IVC filter placed today - thrombocytopenia - worsening. HIT panel pending hem onc following - saddle PE, DVT, hypoxic ischemic encephalopathy, respiratory failure per [facility] PLAN - EGD, plan for am, scheduling called. - monitor CBC - transfuse as needed - supportive care -PPI, Pepcid - further recs to follow This pt seen by myself and Dr Abdi and this note is written on his behalf (Tigist Covarrubias) Physician Comments Seen and examined, plan as above, EGD in AM. (Mali Abdi MD) Tigist Covarrubias Sep 01, 2017 14:54 Mali Abdi MD Sep 01, 2017 15:45
[2017-09-01] MEDS: fentaNYL DRIP 250 ML IV PRN (18:15)
[2017-09-01] MEDS: RESP: ALBUTEROL 2.5 MG/IPRATROPIUM 0.5 MG NEB (SCH) NEB (22:03)
[2017-09-01] MEDS ORDERED: PANTOPRAZOLE SODIUM 40 MG VIAL IV PUSH SCH (22:15)
[2017-09-01 23:56] LABS: BACTERIA, URINE RARE /hpf; BILIRUBIN, URINE NEG (NEG); BLOOD, URINE NEG (NEG); GLUCOSE,URINE NEG (NEG); HYALINE CAST, URINE 1 /lpf (RARE); KETONE, URINE 40 mg/dL (NEG); MUCUS URINE FEW /lpf (OCC); NITRITE,URINE NEG (NEG); SQUAMOUS EPITHELIAL CELL URINE <1 /hpf (0-5); URINE COLOR YELLOW (YELLW/STRAW); URINE LEUKOCYTE ESTERASE MOD (NEG)
[2017-09-02] VITALS (19 sets, daily range): BP systolic 84–113; BP diastolic 53–67; PULSE 76–94; TEMP 98–98.2; O2SAT 98–100
[2017-09-02] MEDS ORDERED: SODIUM CHLORID 0.9% 500 ML IV PRN (01:15)
[2017-09-02] MEDS ORDERED: LACTATED RINGER'S 1000 ML IV PRN (01:15)
[2017-09-02] MEDS ORDERED: POVIDONE IODINE 5% (ANTISEPSIS KIT) 4 APPLICATIONS EACH NARE PRN (01:15)
[2017-09-02] MEDS ORDERED: METOPROLOL TARTRATE 25 MG TAB PO PRN (01:15)
[2017-09-02] MEDS ORDERED: INSULIN HUMAN REGULAR 1,000 UNITS/10 ML VIAL SQ PRN (01:15)
[2017-09-02] MEDS ORDERED: CHLORHEXIDINE GLUCONATE 2 % 1 PACK (2 CLOTHS) TOPICAL PRN (01:15)
[2017-09-02] MEDS: PHENYLEPHRINE 40 MG in D5W 500 ML IV PRN (01:53)
[2017-09-02 03:38] LABS: HEMATOCRIT 25.9 % (39.0-51.0); HEMOGLOBIN 8.6 GM/DL (13.0-17.0); MEAN CELL VOLUME 84.6 FL (80.0-100.0); MEAN CORPUSCULAR HEMOGLOBIN 28.1 PG (27.0-34.0); MEAN CORPUSCULAR HGB CONC 33.2 % (32.0-36.0); MEAN PLATELET VOLUME 9.6 FL (7.0-11.0); PLATELET COUNT 92 TH/MM3 (150-450); RED BLOOD COUNT 3.06 MIL/MM3 (4.50-5.90); RED CELL DISTRIBUTION WIDTH 16.6 % (11.6-17.2); WHITE BLOOD COUNT 16.1 TH/MM3 (4.0-11.0)
[2017-09-02 03:53] LABS: BICARBONATE 23.1 MEQ/L (21.0-32.0); CALCIUM 7.9 MG/DL (8.5-10.1); CREATININE 0.6 MG/DL (0.60-1.30); MAGNESIUM 2.2 MG/DL (1.5-2.5)
[2017-09-02] MEDS: CHLORHEXIDINE GLUCONATE 2 % 1 PACK (2 CLOTHS) TOP SCH (04:00)
[2017-09-02] MEDS: RESP: ALBUTEROL 2.5 MG/IPRATROPIUM 0.5 MG NEB (SCH) NEB ×4 (04:09→20:01)
[2017-09-02] MEDS: CHLORHEXIDINE 0.12% (ORAL KIT) 15 ML CUP MT SCH ×2 (09:09→21:37)
[2017-09-02] MEDS: DEXTROSE 5% IN WATE 1000ML INJ 1,000 ML IV SCH (09:10)
[2017-09-02] MEDS: DOCUSATE SODIUM 50 MG/SENNA 8.6 MG TAB PO SCH ×2 (09:10→21:36)
[2017-09-02] MEDS: VANCOMYCIN 1,500 MG/NS 500 ML IV SCH ×2 (10:37)
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
[2017-09-02] MEDS ORDERED: ceFAZolin INJ 1,000 MG VIAL IV ONE (12:00)
[2017-09-02] MEDS ORDERED: PROPOFOL 200 MG/20 ML AMP IV ONE (12:00)
[2017-09-02] MEDS ORDERED: PHENYLEPH/NS 1000 MCG/10 ML SYR IV ONE (12:00)
--- NOTE | 2017-09-02 15:00 | GIPROC ---
[facility] [address] [facility]. [facility], [address] EGD PROCEDURE REPORT EXAM DATE: 09/02/2017 PATIENT NAME: Chapito Saha MR #: [id number] BIRTHDATE: 1940 ATTENDING: Mali Abdi MD ORDER #: [id number] ENTRY LEVEL MECHANICAL ENGINEER: Susan Gibbs and Savanna Wright STATUS: inpatient INDICATIONS: The patient is a 76 yr old male here for an EGD due to hematemesis PROCEDURE PERFORMED: EGD w/ biopsy MEDICATIONS: Per Anesthesia and None. TOPICAL ANESTHETIC: none CONSENT: The patient understands the risks and benefits of the procedure and understands that these risks include, but are not limited to: sedation, allergic reaction, infection, perforation and/or bleeding. Alternative means of evaluation and treatment include, among others: physical exam, x-rays, and/or surgical intervention. The patient elects to proceed with this endoscopic procedure. medical equipment was checked for proper function. Hand hygiene and appropriate measures for infection prevention was taken. After the risks, benefits and alternatives of the procedure were thoroughly explained, Informed consent was verified, confirmed and timeout was successfully executed by the treatment team. The patient was anesthetized with topical anesthesia and the Pentax EG-[id number] endoscope was introduced through the mouth and advanced to the second portion of the duodenum. Retroflexion was performed and was normal The gastroscope was then slowly withdrawn and removed. ESOPHAGUS: The esophagus was otherwise normal. DUODENUM: The duodenal mucosa appeared normal in the bulb and second portion of the duodenum. STOMACH: A large non-bleeding, irregular shaped, deep and clean-based ulcer with surrounding edema was found in the gastric body and on the greater curve of the stomach. Biopsies were taken at edge of the ulcer and at the center of the ulcer. ADVERSE EVENTS: There were no complications. IMPRESSIONS: 1. The esophagus was otherwise normal 2. Normal duodenal mucosa in the bulb and second portion of the duodenum 3. Large ulcer was found in the gastric body and on the greater curve of the stomach; biopsies were taken 4. Retroflexion was performed and was otherwise normal RECOMMENDATIONS: Await biopsy results. Biopsy results will not be ready for 7-10 days. If you don't hear from us in two weeks, call our office for biopsy results. PATIENT CONDITION: stable DISPOSITION: Observation REPEAT EXAM: NONE Mali Abdi MD eSigned: Mali Abdi MD 09/02/2017 3:00 PM cc: PATIENT NAME: Chapito Saha MR#: [id number]
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
[2017-09-02] MEDS ORDERED: RESP: ALBUTEROL 2.5 MG/3 ML NEB (PRN) NEB (16:15)
[2017-09-02] MEDS ORDERED: FUROSEMIDE 20 MG/2 ML VIAL IV PUSH ONE (16:15)
[2017-09-02] MEDS ORDERED: ACETAMINOPHEN 1000 MG/100 ML 100 ML IV PRN (16:30)
[2017-09-02] MEDS ORDERED: POTASSIUM PHOSPHATE INJ 30 MMOL in SODIUM CHLOR 0.9% 250 ML INJ 250 ML IV ONE (16:30)
[2017-09-02] MEDS ORDERED: DEXTROSE 50% IN WATER 50 ML VIAL(D50) IV PUSH PRN (17:15)
[2017-09-02] MEDS ORDERED: GLUCAGON 1 MG/ML VIAL OTHER PRN (17:15)
[2017-09-02] MEDS: INSULIN NovoLIN REGULAR SUPPLEMENTAL SCALE SQ SCH (17:46)
[2017-09-02] MEDS: CARBOXYMETHYLCELL SOD 0.5% OPTH SOLN 15 ML BTL EACH EYE SCH (21:00)
[2017-09-02] MEDS: PANTOPRAZOLE SODIUM 40 MG VIAL IV PUSH SCH (21:36)
[2017-09-02] MEDS ORDERED: ARTIFICIAL TEARS OPTH SOLN 15 ML BTL EACH EYE SCH (22:00)
[2017-09-03] VITALS (17 sets, daily range): BP systolic 82–117; BP diastolic 54–67; PULSE 84–95; RESP 18; TEMP 98.9; O2SAT 97–100
[2017-09-03] MEDS: RESP: ALBUTEROL 2.5 MG/IPRATROPIUM 0.5 MG NEB (SCH) NEB ×4 (03:26→20:25)
[2017-09-03] MEDS: CHLORHEXIDINE GLUCONATE 2 % 1 PACK (2 CLOTHS) TOP SCH (04:00)
[2017-09-03] MEDS: DEXTROSE 5% IN WATE 1000ML INJ 1,000 ML IV SCH (04:48)
[2017-09-03] MEDS: INSULIN NovoLIN REGULAR SUPPLEMENTAL SCALE SQ SCH ×4 (06:00→17:26)
--- NOTE | 2017-09-03 06:00 | RADRPT ---
EXAM DATE/TIME: 09/03/2017 04:33 [place] COMPARISON: CHEST SINGLE AP, September 01, 2017, 3:21. INDICATIONS : Shortness of breath, possible pulmonary disease. MEDICAL HISTORY : None. SURGICAL HISTORY : None. ENCOUNTER: Subsequent ACUITY: 1 week PAIN SCORE: Non-responsive. LOCATION: Bilateral chest FINDINGS: ET tube, and NG tube have not changed. Left basilar opacity is present may be due to a combination of consolidation and or pleural effusion. Slight degree of prevascular pulmonary edema is also seen not changed. CONCLUSION: No appreciable change. Omid Villa MD on September 03, 2017 at 5:58 Board Certified Radiologist. This report was verified electronically.
[2017-09-03 06:21] LABS: HEMATOCRIT 26.6 % (39.0-51.0); HEMOGLOBIN 8.7 GM/DL (13.0-17.0); MEAN CORPUSCULAR HEMOGLOBIN 27.8 PG (27.0-34.0); MEAN CORPUSCULAR HGB CONC 32.7 % (32.0-36.0); MEAN PLATELET VOLUME 9.3 FL (7.0-11.0); PLATELET COUNT 91 TH/MM3 (150-450); RED BLOOD COUNT 3.13 MIL/MM3 (4.50-5.90)
[2017-09-03 07:09] LABS: ALBUMIN 1.8 GM/DL (3.4-5.0); BICARBONATE 23.9 MEQ/L (21.0-32.0); CALCIUM 7.9 MG/DL (8.5-10.1); CREATININE 0.64 MG/DL (0.60-1.30); DIRECT BILIRUBIN ADULT 0.2 MG/DL (0.0-0.2); INDIRECT BILIRUBIN 0.3 MG/DL (0.0-0.8); MAGNESIUM 2.1 MG/DL (1.5-2.5); PHOSPHORUS 2.7 MG/DL (2.5-4.9); TOTAL BILIRUBIN ADULT 0.5 MG/DL (0.2-1.0)
[2017-09-03] MEDS: CHLORHEXIDINE 0.12% (ORAL KIT) 15 ML CUP MT SCH ×2 (08:00→20:00)
[2017-09-03] MEDS: CARBOXYMETHYLCELL SOD 0.5% OPTH SOLN 15 ML BTL EACH EYE SCH ×2 (08:10→20:52)
[2017-09-03] MEDS: DOCUSATE SODIUM 50 MG/SENNA 8.6 MG TAB PO SCH ×2 (08:10→20:51)
[2017-09-03] MEDS: PANTOPRAZOLE SODIUM 40 MG VIAL IV PUSH SCH ×2 (08:11→20:51)
--- NOTE | 2017-09-03 10:07 | HHI.GIFU ---
Subjective Remarks Pt intubated, eyes open, in NAD. (Maria Stoevr) Objective Vitals I&O Vital Signs Date Time Temp Pulse Resp B/P (MAP) Pulse Ox O2 Delivery O2 Flow Rate FiO2 09/03/17 08:00 40 09/03/17 08:00 99.1 95 108/59 (75) 97 84/61 (69) 09/03/17 08:00 92 09/03/17 07:51 98 40 09/03/17 07:51 40 09/03/17 06:00 91 09/03/17 04:00 40 09/03/17 04:00 92 09/03/17 04:00 99.1 92 101/56 (71) 99 82/59 (67) 09/03/17 03:28 99 40 09/03/17 02:00 99.1 92 107/57 (74) 99 89/61 (70) 09/03/17 02:00 92 09/03/17 00:01 92 09/03/17 00:01 99.1 92 97/54 (68) 100 92/57 (69) 09/03/17 00:00 40 09/02/17 23:34 99 40 09/02/17 22:00 99.0 91 102/57 (72) 99 91/65 (74) 09/02/17 22:00 91 09/02/17 20:00 40 09/02/17 20:00 94 09/02/17 20:00 98.8 94 112/65 (81) 98 93/63 (73) 09/02/17 19:54 98 40 09/02/17 18:00 90 09/02/17 16:00 87 09/02/17 16:00 98.2 86 103/59 (74) 98 84/58 (67) 09/02/17 16:00 40 09/02/17 15:30 84 108/65 09/02/17 15:17 100 40 09/02/17 14:00 84 09/02/17 12:00 98.6 76 111/67 (82) 98 92/65 (74) 09/02/17 12:00 82 09/02/17 12:00 40 09/02/17 12:00 76 111/67 09/02/17 11:08 98 40 09/02/17 11:00 80 106/65 09/02/17 10:37 77 109/61 I/O 09/02/17 09/02/17 09/02/17 09/03/17 09/03/17 09/03/17 07:00 15:00 23:00 07:00 15:00 23:00 Intake Total 896.5 ml 604 ml 1045 ml 620 ml Output Total 350 ml 550 ml 1550 ml Balance 546.5 ml 604 ml 495 ml -930 ml Intake IV Total 896.5 ml 604 ml 745 ml 620 ml Other 300 ml Output Urine Total 350 ml 550 ml 1550 ml # Bowel Movements 1 0 0 Laboratory Laboratory Tests Test 09/03/17 05:30 White Blood Count 14.0 Red Blood Count 3.13 Hemoglobin 8.7 Hematocrit 26.6 Mean Corpuscular Volume 85.0 Mean Corpuscular Hemoglobin 27.8 Mean Corpuscular Hemoglobin Concent 32.7 Red Cell Distribution Width 17.0 Platelet Count 91 Mean Platelet Volume 9.3 Blood Urea Nitrogen 12 Creatinine 0.64 Random Glucose 95 Total Protein 5.0 Albumin 1.8 Calcium Level 7.9 Phosphorus Level 2.7 Magnesium Level 2.1 Alkaline Phosphatase 56 Aspartate Amino Transf (AST/SGOT) 21 Alanine Aminotransferase (ALT/SGPT) 36 Total Bilirubin 0.5 Direct Bilirubin 0.2 Sodium Level 148 Potassium Level 3.8 Chloride Level 115 Carbon Dioxide Level 23.9 Anion Gap 9 Estimat Glomerular Filtration Rate 122 Indirect Bilirubin 0.3 Date/Time Source Procedure Growth Status 09/01/17 22:55 Blood Peripheral Aerobic Blood Culture - Preliminary NO GROWTH IN 1 DAY Resulted 09/01/17 22:55 Blood Peripheral Anaerobic Blood Culture - Final QNS - SEE AEROBE REPORT Resulted 08/30/17 09:54 Stool Stool Stool Occult Blood (JORI) - Final HEMOCCULT NEGATIVE Complete 08/30/17 08:30 Sputum Endotracheal Gram Stain - Final Complete 08/30/17 08:30 Sputum Endotracheal Sputum Culture - Final HEAVY GROWTH NORMAL RESPIRATORY ARTHUR Complete 09/01/17 23:35 Urine Catheterized Urine Urine Culture - Preliminary RESULTS PENDING Resulted Physical Exam HEENT: normocephalic, atraumatic, eyes open. intubated, NGT CHEST: coarse CARDIAC: RRR ABDOMEN: soft, nontender; no hepatosplenomegaly; bowel sounds soft, hypoactive EXTREMITIES: no cyanosis or edema SKIN: LUE wound KILN PULLER: random opens eyes (Maria Stover) Assessment and Plan Plan ASSESSMENT - gastric ulcer - anemia with drop in HH - since admission, normocytic, possible due to TPA hematology on case. s/p IVC filter. had EGD found large ulcer, bx pending - thrombocytopenia - stable hem onc following - saddle PE, DVT, hypoxic ischemic encephalopathy, respiratory failure per [facility] palliative care to discuss pt with his 6 children re goals PLAN - BID PPI - await palliative care follow up & discussion with family - await path - monitor labs - transfuse as needed - notify GI of active bleeding - supportive care This pt seen by myself and Dr Abdi and this note is written on his behalf (Maria Stover) Physician Comments Seen and examined, plan as above. Biopsy pending, no signs of active bleeding. Will follow up with you. (Mali Abdi MD) Maria Stover Sep 03, 2017 10:07 Mali Abdi MD Sep 03, 2017 14:24
[2017-09-03] MEDS ORDERED: PHARMACY ORDERED LAB ONE (10:45)
[2017-09-03] MEDS: VANCOMYCIN 1,500 MG/NS 500 ML IV SCH ×2 (10:56)
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
[2017-09-03] MEDS: fentaNYL DRIP 250 ML IV PRN (18:18)
[2017-09-03] MEDS: CLINIMIX E 4.25/5 2000 mL- >42 mls/hr IV SCH ×3 (20:51)
[2017-09-03] MEDS: FAT EMULSION 20% INJ 250 ML (@10 mls/hr) IV SCH (20:51)
[2017-09-04] VITALS (38 sets, daily range): BP systolic 78–117; BP diastolic 50–76; PULSE 81–109; RESP 18; TEMP 97.8–99.1; O2SAT 96–100
[2017-09-04] MEDS: RESP: ALBUTEROL 2.5 MG/IPRATROPIUM 0.5 MG NEB (SCH) NEB ×4 (03:17→20:38)
[2017-09-04] MEDS: CHLORHEXIDINE GLUCONATE 2 % 1 PACK (2 CLOTHS) TOP SCH (04:00)
[2017-09-04 05:07] LABS: HEMATOCRIT 27.3 % (39.0-51.0); HEMOGLOBIN 8.9 GM/DL (13.0-17.0); MEAN CELL VOLUME 86.1 FL (80.0-100.0); MEAN CORPUSCULAR HGB CONC 32.5 % (32.0-36.0); MEAN PLATELET VOLUME 10.4 FL (7.0-11.0); PLATELET COUNT 117 TH/MM3 (150-450); RED BLOOD COUNT 3.16 MIL/MM3 (4.50-5.90); RED CELL DISTRIBUTION WIDTH 16.8 % (11.6-17.2)
[2017-09-04 05:35] LABS: BICARBONATE 23.4 MEQ/L (21.0-32.0); CALCIUM 7.6 MG/DL (8.5-10.1); CREATININE 0.58 MG/DL (0.60-1.30); MAGNESIUM 1.9 MG/DL (1.5-2.5); PHOSPHORUS 2.3 MG/DL (2.5-4.9)
[2017-09-04] MEDS: INSULIN NovoLIN REGULAR SUPPLEMENTAL SCALE SQ SCH ×4 (06:00→18:00)
[2017-09-04] MEDS: CARBOXYMETHYLCELL SOD 0.5% OPTH SOLN 15 ML BTL EACH EYE SCH ×2 (07:54→22:23)
[2017-09-04] MEDS: DOCUSATE SODIUM 50 MG/SENNA 8.6 MG TAB PO SCH ×2 (07:54→22:23)
[2017-09-04] MEDS: CHLORHEXIDINE 0.12% (ORAL KIT) 15 ML CUP MT SCH ×2 (07:54→22:21)
[2017-09-04] MEDS: PANTOPRAZOLE SODIUM 40 MG VIAL IV PUSH SCH ×2 (07:54→22:23)
[2017-09-04] MEDS ORDERED: DIATRIZOATE MEGLUM/DIATRIZOATE SOD 9 ML CUP PO ONE (10:00)
[2017-09-04] MEDS: VANCOMYCIN 1,500 MG/NS 500 ML IV SCH ×2 (10:11)
[2017-09-04] MEDS ORDERED: MIDAZOLAM HCL 5 MG/ML VIAL (1 ML) ONE (11:36)
[2017-09-04] MEDS ORDERED: SODIUM CHLORIDE 0.9% FLUSH 10 ML FLUSH IV FLUSH PRN (12:00)
--- NOTE | 2017-09-04 12:00 | PD.PROCEDR ---
Central Line Procedure REASON FOR PROCEDURE Central venous access PROCEDURE PERFORMED Central line placement: Left IJ CVL CONSENT Informed consent for procedure was not obtaining consent enlarged. Multiple times to attempt to notify sister Lin/healthcare proxy unsuccessful. Lin's daughter notified and states she try to get a hold of her mother work however unsuccessful. Patient has no IV access. ANESTHESIA Local injection of 1% Lidocaine DESCRIPTION OF THE PROCEDURE The patient was placed in supine, mild Trendelenburg position. The area was exposed and cleansed with ChloraPrep, times two. Large sterile drape was used to cover the patient, with the site exposed, under sterile conditions including cap, face mask, sterile gown, and sterile gloves. On single attempt, the introducer needle was inserted with negative pressure in syringe and venous flash was obtained. The guide wire was then advanced without any restriction and the needle was removed. The dilator was used without any complications. Using Seldinger technique the antibiotic-coated triple-lumen catheter was advanced over the guide wire to a depth of 20 centimeters. The guide wire was removed. All ports were aspirated with dark venous blood return and flushed easily with sterile saline. All ports were capped. Antibiotic disc was placed around central line at puncture site. The central line was secured to the skin with two interrupted 2.0 silk sutures. The area was bandaged with sterile see- through central line bandage. RADIOLOGICAL DATA Ultrasound guidance was used to locate left internal jugular vein. Doppler/ color flow was used to confirm venous flow. COMPLICATIONS: No apparent complications ESTIMATED BLOOD LOSS: Less than 1 cc. Raghu Mariscal MD Sep 04, 2017 12:00
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
--- NOTE | 2017-09-04 13:21 | RADRPT ---
EXAM DATE/TIME: 09/04/2017 12:52 [facility] COMPARISON: CT ABDOMEN & PELVIS W CONTRAST, November 23, 2014, 13:41. INDICATIONS : Gastric ulcer, fecal material coming from NGT. ORAL CONTRAST: Prescribed oral contrast ingested. RADIATION DOSE: 8.83 CTDIvol (mGy) MEDICAL HISTORY : Cardiovascular disease. Hypertension. Carcinoma, prostate.Renal failure SURGICAL HISTORY : Nephrectomy, Rad therapy ENCOUNTER: Initial ACUITY: 1 day PAIN SCALE: 4/10 LOCATION: abdomen TECHNIQUE: Volumetric scanning of the abdomen and pelvis was performed. Using automated exposure control and ad justment of the mA and/or kV according to patient size, radiation dose was kept as low as reasonably achievable to obtain optimal diagnostic quality images. DICOM format image data is available electro nically for review and comparison. FINDINGS: LOWER LUNGS: There is consolidation in both posterior lung bases with air bronchograms. There are small bilateral effusions. LIVER: Homogeneous density without lesion. There is no dilation of the biliary tree. There is vicarious exc retion of contrast in the gallbladder. Ascitic fluid is noted along the lateral and anterior liver ma rgin. SPLEEN: Normal size without lesion. PANCREAS: Within normal limits. KIDNEYS: The right kidney remains small and atrophic with cortical thinning. There is a simple cyst extending off the lower pole. There are multiple calcifications. The left kidney remains normal in size and sha pe with no evidence of hydronephrosis. ADRENAL GLANDS: Within normal limits. VASCULAR: There is no aortic aneurysm. The inferior vena caval filter is now noted. BOWEL/MESENTERY: A nasogastric tube is seen coursing through the esophagus and into the stomach. A small to moderate a mount of oral contrast is noted in the stomach with no opacification of the small bowel or colon. The re is no extravasation. The bowel gas pattern is unremarkable. There are scattered diverticuli presen t. Ascitic fluid is noted in both sides of the anterior pelvis. ABDOMINAL WALL: Within normal limits. RETROPERITONEUM: There is no lymphadenopathy. BLADDER: No wall thickening or mass. REPRODUCTIVE: Multiple radiation seed implants are again noted in the prostate gland. INGUINAL: There is no lymphadenopathy or hernia. MUSCULOSKELETAL: Within normal limits for patient age. CONCLUSION: 1. Nasogastric tube in the stomach with small to moderate amount of contrast present in the stomach w ith no extravasation or evidence of fistula. 2. Nonobstructive bowel gas pattern with no evidence of free air. 3. Consolidation in both posterior lower lobes with air bronchograms and small effusions. 4. Stable small atrophic right kidney. 5. Small to moderate amount of ascitic fluid present in the abdomen and pelvis which is nonspecific. There is no free air. Maxime Harrell MD on September 04, 2017 at 13:14 Board Certified Radiologist. This report was verified electronically.
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
--- NOTE | 2017-09-04 16:34 | HHI.GIFU ---
Subjective Remarks Pt intubated. Per RN having NGT output that looks and smells of feces this am. Suctioned this afternoon and copious bilious output seen. Has had BM, not today though. (Maria Stover) Objective Vitals I&O Vital Signs Date Time Temp Pulse Resp B/P (MAP) Pulse Ox O2 Delivery O2 Flow Rate FiO2 09/04/17 15:30 98 40 09/04/17 15:00 84 09/04/17 14:38 87 09/04/17 14:00 81 09/04/17 14:00 81 82/51 (61) 97 09/04/17 13:39 100 100 09/04/17 13:30 85 09/04/17 13:30 85 96/56 (69) 100 09/04/17 13:18 91 09/04/17 13:18 91 117/76 (90) 100 09/04/17 12:31 86 94/59 (71) 100 09/04/17 12:31 86 09/04/17 12:02 92 09/04/17 12:02 92 83/59 (67) 98 09/04/17 12:00 89 80/55 (63) 96 09/04/17 12:00 40 09/04/17 12:00 89 09/04/17 11:57 89 09/04/17 11:57 89 78/50 (59) 96 09/04/17 11:30 87 09/04/17 11:30 87 94/60 (71) 98 09/04/17 11:00 96 09/04/17 11:00 96 107/65 (79) 98 09/04/17 10:30 88 103/64 (77) 97 09/04/17 10:30 88 09/04/17 10:01 93 09/04/17 10:01 93 111/68 (82) 99 09/04/17 10:00 94 98 09/04/17 10:00 94 09/04/17 09:30 93 106/64 (78) 99 09/04/17 09:30 93 09/04/17 09:03 99 40 09/04/17 09:03 40 09/04/17 09:00 95 107/76 (86) 100 09/04/17 09:00 95 09/04/17 08:30 109 117/68 (84) 96 09/04/17 08:30 109 09/04/17 08:00 40 09/04/17 08:00 88 88/58 (68) 99 09/04/17 08:00 88 09/04/17 06:00 87 09/04/17 04:00 40 09/04/17 04:00 82 09/04/17 04:00 99.1 82 18 93/62 (72) 97 09/04/17 03:19 99 40 09/04/17 02:00 90 09/04/17 00:32 98 40 09/04/17 00:00 81 09/04/17 00:00 98.9 81 18 89/56 (67) 98 09/04/17 00:00 40 09/03/17 22:00 84 09/03/17 20:19 99 40 09/03/17 20:00 40 09/03/17 20:00 98.9 86 18 93/67 (76) 99 09/03/17 20:00 86 09/03/17 18:00 91 I/O 09/03/17 09/03/17 09/03/17 09/04/17 09/04/17 09/04/17 07:00 15:00 23:00 07:00 15:00 23:00 Intake Total 620 ml 515 ml 836 ml 668.0 ml Output Total 1550 ml 450 ml 500 ml Balance -930 ml 515 ml 386 ml 168.0 ml Intake IV Total 620 ml 515 ml 836 ml 608.0 ml Other 60 ml Output Urine Total 1550 ml 450 ml 500 ml # Bowel Movements 0 0 1 Laboratory Laboratory Tests Test 09/04/17 04:27 White Blood Count 14.0 Red Blood Count 3.16 Hemoglobin 8.9 Hematocrit 27.3 Mean Corpuscular Volume 86.1 Mean Corpuscular Hemoglobin 28.0 Mean Corpuscular Hemoglobin Concent 32.5 Red Cell Distribution Width 16.8 Platelet Count 117 Mean Platelet Volume 10.4 Blood Urea Nitrogen 13 Creatinine 0.58 Random Glucose 88 Calcium Level 7.6 Phosphorus Level 2.3 Magnesium Level 1.9 Sodium Level 143 Potassium Level 4.1 Chloride Level 112 Carbon Dioxide Level 23.4 Anion Gap 8 Estimat Glomerular Filtration Rate 136 Date/Time Source Procedure Growth Status 09/01/17 22:55 Blood Peripheral Aerobic Blood Culture - Preliminary NO GROWTH IN 3 DAYS Resulted 09/01/17 22:55 Blood Peripheral Anaerobic Blood Culture - Final QNS - SEE AEROBE REPORT Resulted 08/30/17 09:54 Stool Stool Stool Occult Blood (JORI) - Final HEMOCCULT NEGATIVE Complete 08/30/17 08:30 Sputum Endotracheal Gram Stain - Final Complete 08/30/17 08:30 Sputum Endotracheal Sputum Culture - Final HEAVY GROWTH NORMAL RESPIRATORY ARTHUR Complete 09/01/17 23:35 Urine Catheterized Urine Urine Culture - Final NO GROWTH IN 48 HOURS. Complete Imaging Last Impressions Chest X-Ray 09/04/17 1158 Signed Impressions: Service Date/Time: Monday, September 04, 2017 12:14 - CONCLUSION: Left IJ catheter in the proximal superior vena cava. No evidence of pneumothorax. Lew Cary MD Abdomen/Pelvis CT 09/04/17 0000 Signed Impressions: Service Date/Time: Monday, September 04, 2017 12:52 - CONCLUSION: 1. Nasogastric tube in the stomach with small to moderate amount of contrast present in the stomach with no extravasation or evidence of fistula. 2. Nonobstructive bowel gas pattern with no evidence of free air. 3. Consolidation in both posterior lower lobes with air bronchograms and small effusions. 4. Stable small atrophic right kidney. 5. Small to moderate amount of ascitic fluid present in the abdomen and pelvis which is nonspecific. There is no free air. Maxime Harrell MD IVC Filter Placement X-Ray 09/01/17 0000 Signed Impressions: Service Date/Time: Friday, September 01, 2017 10:18 - CONCLUSION: Uncomplicated inferior vena cava filter placement as above. Chema Freeman MD Lower Extremity Ultrasound 08/30/17 0000 Signed Impressions: Service Date/Time: Wednesday, August 30, 2017 10:45 - CONCLUSION: Venous thrombosis bilaterally as above. Dayton Rodriguez MD FACR Abdomen X-Ray 08/30/17 0000 Signed Impressions: Service Date/Time: Wednesday, August 30, 2017 08:26 - CONCLUSION: Femoral line on the left, otherwise negative Dayton Rodriguez MD FACR CT Angiography 08/27/17 8541 Signed Impressions: Service Date/Time: Monday, August 28, 2017 00:01 - CONCLUSION: Saddle pulmonary embolism. Endotracheal tube tip extends into the right mainstem bronchus. Retraction by couple of centimeters recommended Chema Freeman MD Head CT 08/27/17 0000 Signed Impressions: Service Date/Time: August 23:58 - CONCLUSION: No acute intracranial findings. Chema Freeman MD Physical Exam HEENT: normocephalic, atraumatic, eyes open. intubated, NGT CHEST: coarse CARDIAC: RRR ABDOMEN: soft, mildly distended, tympanitic, nontender; no hepatosplenomegaly; bowel sounds faint EXTREMITIES: no cyanosis or edema SKIN: LUE wound VASCULAR NURSE: random opens eyes (Maria Stover) Assessment and Plan Plan ASSESSMENT - abd distention - and NGT output resembling stool per RN. no BM today but does have prior documented BMs. CT as above, no obstruction seen d/w [facility], will reevaluate tomorrow - gastric ulcer - path pending - anemia with drop in HH - since admission, normocytic, possible due to TPA hematology on case. s/p IVC filter. had EGD found large ulcer, bx pending HH stable - thrombocytopenia - hem onc following poss DIC - saddle PE, DVT, hypoxic ischemic encephalopathy, respiratory failure per [facility] palliative care to discuss pt with his 6 children re goals, this is ongoing PLAN - KUB in am - ok to anticoagulate - BID PPI - await palliative care follow up & discussion with family - await path - monitor labs - transfuse as needed - notify GI of active bleeding - supportive care This pt seen by myself and Dr bAdi and this note is written on his behalf (Maria Stover) Physician Comments As above, will follow up with you once pathology is ready. (Mali Abdi MD) Maria Stover Sep 04, 2017 16:34 Mali Abdi MD Sep 05, 2017 06:42
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
[2017-09-04] MEDS ORDERED: Vancomycin Consult Pharmacy 1 EA OTHER SCH (19:45)
[2017-09-04] MEDS ORDERED: SODIUM PHOSPHATE INJ 15 MMOL in SODIUM CHLORIDE 0.9% INJ 150 ML IV ONE (19:45)
[2017-09-04 20:07] LABS: HEMOGLOBIN 8.8 GM/DL (13.0-17.0); MEAN CELL VOLUME 86.6 FL (80.0-100.0); MEAN CORPUSCULAR HEMOGLOBIN 28.2 PG (27.0-34.0); MEAN CORPUSCULAR HGB CONC 32.6 % (32.0-36.0); MEAN PLATELET VOLUME 9.8 FL (7.0-11.0); PLATELET COUNT 131 TH/MM3 (150-450); RED BLOOD COUNT 3.12 MIL/MM3 (4.50-5.90); RED CELL DISTRIBUTION WIDTH 16.5 % (11.6-17.2); WHITE BLOOD COUNT 14.7 TH/MM3 (4.0-11.0)
[2017-09-04 20:18] LABS: INTERNATIONAL NORMALIZED RATIO 1.1 RATIO; PROTHROMBIN TIME - PATIENT 11.1 SEC (9.8-11.6)
[2017-09-04] MEDS: CLINIMIX E 4.25/5 2000 mL- >42 mls/hr IV SCH ×3 (22:22)
[2017-09-04] MEDS: FAT EMULSION 20% INJ 250 ML (@10 mls/hr) IV SCH (22:22)
[2017-09-04] MEDS: HEPARIN-D5W 25,000 U/250 ML 250 ML IV PRN (22:28)
[2017-09-05] VITALS (32 sets, daily range): BP systolic 84–115; BP diastolic 49–84; PULSE 80–99; RESP 18; TEMP 98–98.4; O2SAT 97–100
[2017-09-05 00:57] LABS: HEMATOCRIT 25.2 % (39.0-51.0); HEMOGLOBIN 8.2 GM/DL (13.0-17.0)
[2017-09-05] MEDS: CHLORHEXIDINE GLUCONATE 2 % 1 PACK (2 CLOTHS) TOP SCH ×2 (04:00→19:58)
[2017-09-05] MEDS: RESP: ALBUTEROL 2.5 MG/IPRATROPIUM 0.5 MG NEB (SCH) NEB ×4 (04:09→21:15)
--- NOTE | 2017-09-05 05:14 | RADRPT ---
EXAM DATE/TIME: 09/05/2017 03:45 [place] COMPARISON: CT ABDOMEN & PELVIS W/O CONTRAST, September 04, 2017, 12:52. INDICATIONS : Abdominal distention. MEDICAL HISTORY : Carcinoma, prostatic. Hypertension SURGICAL HISTORY : None. ENCOUNTER: Subsequent ACUITY: 2 weeks PAIN SCORE: Non-responsive. LOCATION: Bilateral Abdomen FINDINGS: Supine view of the abdomen was performed. The abdominal bowel gas pattern is normal. No abnormal ma sses, calcifications, or organomegaly is seen. The osseous structures are unremarkable. There is a nasogastric tube with tip in the stomach. An IVC filter is present. Patient has radiation seeds prostate. CONCLUSION: Benign-appearing abdomen. Chema Peters MD on September 05, 2017 at 5:12 Board Certified Radiologist. This report was verified electronically.
[2017-09-05 05:26] LABS: AUTOMATED NEUTROPHIL # 11.2 TH/MM3 (1.8-7.7); EOSINOPHIL # 0.3 TH/MM3 (0-0.4); EOSINOPHIL % 2.2 % (0.0-4.0); HEMATOCRIT 25.4 % (39.0-51.0); HEMOGLOBIN 8.5 GM/DL (13.0-17.0); LYMPH % 11.8 % (9.0-44.0); LYMPHOCYTE # 1.7 TH/MM3 (1.0-4.8); MEAN CORPUSCULAR HEMOGLOBIN 28.7 PG (27.0-34.0); MEAN CORPUSCULAR HGB CONC 33.4 % (32.0-36.0); MEAN PLATELET VOLUME 10.4 FL (7.0-11.0); MONO % 10.8 % (0.0-8.0); MONOCYTE # 1.6 TH/MM3 (0-0.9); NEUT % 75.2 % (16.0-70.0); PLATELET COUNT 137 TH/MM3 (150-450); RED BLOOD COUNT 2.95 MIL/MM3 (4.50-5.90); RED CELL DISTRIBUTION WIDTH 16.9 % (11.6-17.2); WHITE BLOOD COUNT 14.8 TH/MM3 (4.0-11.0)
[2017-09-05 05:43] LABS: ALBUMIN 1.6 GM/DL (3.4-5.0); AST (GOT) 16 U/L (15-37); BLOOD UREA NITROGEN 18 MG/DL (7-18); CALCIUM 7.7 MG/DL (8.5-10.1); CHLORIDE 109 MEQ/L (98-107); GLOMERULAR FILTRATION RATE 162 ML/MIN (>89); GLUCOSE,RANDOM 96 MG/DL (74-106); MAGNESIUM 1.9 MG/DL (1.5-2.5); SODIUM (NA) 144 MEQ/L (136-145)
[2017-09-05 05:46] LABS: ALKALINE PHOSPHATASE 53 U/L (45-117); ALT (GPT) 24 U/L (12-78); PHOSPHORUS 3.2 MG/DL (2.5-4.9); TOTAL BILIRUBIN ADULT 0.5 MG/DL (0.2-1.0); TOTAL PROTEIN 4.7 GM/DL (6.4-8.2)
[2017-09-05] MEDS: INSULIN NovoLIN REGULAR SUPPLEMENTAL SCALE SQ SCH ×5 (06:00→23:50)
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
[2017-09-05] MEDS: DOCUSATE SODIUM 50 MG/SENNA 8.6 MG TAB PO SCH ×2 (09:00→19:57)
--- NOTE | 2017-09-05 10:37 | HHI.GIFU ---
Subjective Remarks patient resting in bed, on the vent, awake, denies abd pain, no bleeding reported (Max Yoon OANH) Objective Vitals I&O Vital Signs Date Time Temp Pulse Resp B/P (MAP) Pulse Ox O2 Delivery O2 Flow Rate FiO2 09/05/17 07:36 99 40 09/05/17 06:00 86 09/05/17 04:10 99 40 09/05/17 04:00 40 09/05/17 04:00 85 09/05/17 04:00 98.2 85 18 110/62 (78) 99 09/05/17 01:22 100 40 09/05/17 00:00 98.0 86 18 99/61 (74) 100 09/05/17 00:00 40 09/05/17 00:00 86 09/04/17 22:20 100 40 09/04/17 22:00 82 09/04/17 20:00 40 09/04/17 20:00 97.8 84 18 102/75 (84) 100 09/04/17 20:00 84 09/04/17 19:12 100 40 09/04/17 18:30 84 103/72 (82) 100 09/04/17 18:30 84 09/04/17 18:00 81 94/53 (67) 100 09/04/17 18:00 81 09/04/17 17:30 81 84/53 (63) 100 09/04/17 17:30 81 09/04/17 17:00 85 09/04/17 17:00 85 107/66 (80) 100 09/04/17 16:30 83 09/04/17 16:30 83 104/71 (82) 100 09/04/17 16:00 87 09/04/17 16:00 40 09/04/17 16:00 87 108/76 (87) 100 09/04/17 15:30 98 40 09/04/17 15:00 84 09/04/17 14:38 87 09/04/17 14:00 81 09/04/17 14:00 81 82/51 (61) 97 09/04/17 13:39 100 100 09/04/17 13:30 85 09/04/17 13:30 85 96/56 (69) 100 09/04/17 13:18 91 09/04/17 13:18 91 117/76 (90) 100 09/04/17 12:31 86 94/59 (71) 100 09/04/17 12:31 86 09/04/17 12:02 92 09/04/17 12:02 92 83/59 (67) 98 09/04/17 12:00 89 80/55 (63) 96 09/04/17 12:00 40 09/04/17 12:00 89 09/04/17 11:57 89 09/04/17 11:57 89 78/50 (59) 96 09/04/17 11:30 87 09/04/17 11:30 87 94/60 (71) 98 09/04/17 11:00 96 09/04/17 11:00 96 107/65 (79) 98 I/O 09/04/17 09/04/17 09/04/17 09/05/17 09/05/17 09/05/17 07:00 15:00 23:00 07:00 15:00 23:00 Intake Total 668.0 ml 1618 ml 190 ml Output Total 500 ml 680 ml 325 ml Balance 168.0 ml 938 ml -135 ml Intake IV Total 608.0 ml 1618 ml 150 ml Other 60 ml 40 ml Output Urine Total 500 ml 400 ml 275 ml Gastric Drainage Total 280 ml 50 ml # Voids 1 # Bowel Movements 1 0 Laboratory Laboratory Tests Test 09/04/17 19:55 09/05/17 00:39 09/05/17 04:48 White Blood Count 14.7 14.8 Red Blood Count 3.12 2.95 Hemoglobin 8.8 8.2 8.5 Hematocrit 27.0 25.2 25.4 Mean Corpuscular Volume 86.6 86.0 Mean Corpuscular Hemoglobin 28.2 28.7 Mean Corpuscular Hemoglobin Concent 32.6 33.4 Red Cell Distribution Width 16.5 16.9 Platelet Count 131 137 Mean Platelet Volume 9.8 10.4 Prothrombin Time 11.1 Prothromb Time International Ratio 1.1 Activated Partial Thromboplast Time 24.5 73.4 Neutrophils (%) (Auto) 75.2 Lymphocytes (%) (Auto) 11.8 Monocytes (%) (Auto) 10.8 Eosinophils (%) (Auto) 2.2 Basophils (%) (Auto) 0.0 Neutrophils # (Auto) 11.2 Lymphocytes # (Auto) 1.7 Monocytes # (Auto) 1.6 Eosinophils # (Auto) 0.3 Basophils # (Auto) 0.0 CBC Comment DIFF FINAL Differential Comment Blood Urea Nitrogen 18 Creatinine 0.50 Random Glucose 96 Total Protein 4.7 Albumin 1.6 Calcium Level 7.7 Phosphorus Level 3.2 Magnesium Level 1.9 Alkaline Phosphatase 53 Aspartate Amino Transf (AST/SGOT) 16 Alanine Aminotransferase (ALT/SGPT) 24 Total Bilirubin 0.5 Sodium Level 144 Potassium Level 3.7 Chloride Level 109 Carbon Dioxide Level 27.0 Anion Gap 8 Estimat Glomerular Filtration Rate 162 Date/Time Source Procedure Growth Status 09/01/17 22:55 Blood Peripheral Aerobic Blood Culture - Preliminary NO GROWTH IN 3 DAYS Resulted 09/01/17 22:55 Blood Peripheral Anaerobic Blood Culture - Final QNS - SEE AEROBE REPORT Resulted 08/30/17 09:54 Stool Stool Stool Occult Blood (JORI) - Final HEMOCCULT NEGATIVE Complete 09/05/17 10:00 Sputum Endotracheal Gram Stain Pending Received 09/05/17 10:00 Sputum Endotracheal Sputum Culture Pending Received 09/01/17 23:35 Urine Catheterized Urine Urine Culture - Final NO GROWTH IN 48 HOURS. Complete Imaging Last Impressions Abdomen X-Ray 09/05/17 0600 Signed Impressions: Service Date/Time: Tuesday, September 05, 2017 03:45 - CONCLUSION: Benign-appearing abdomen. Chema Peters MD Chest X-Ray 09/04/17 1158 Signed Impressions: Service Date/Time: Monday, September 04, 2017 12:14 - CONCLUSION: Left IJ catheter in the proximal superior vena cava. No evidence of pneumothorax. Lew Cary MD Abdomen/Pelvis CT 09/04/17 0000 Signed Impressions: Service Date/Time: Monday, September 04, 2017 12:52 - CONCLUSION: 1. Nasogastric tube in the stomach with small to moderate amount of contrast present in the stomach with no extravasation or evidence of fistula. 2. Nonobstructive bowel gas pattern with no evidence of free air. 3. Consolidation in both posterior lower lobes with air bronchograms and small effusions. 4. Stable small atrophic right kidney. 5. Small to moderate amount of ascitic fluid present in the abdomen and pelvis which is nonspecific. There is no free air. Maxime Harrell MD IVC Filter Placement X-Ray 09/01/17 0000 Signed Impressions: Service Date/Time: Friday, September 01, 2017 10:18 - CONCLUSION: Uncomplicated inferior vena cava filter placement as above. Chema Freeman MD Lower Extremity Ultrasound 08/30/17 0000 Signed Impressions: Service Date/Time: Wednesday, August 30, 2017 10:45 - CONCLUSION: Venous thrombosis bilaterally as above. Dayton Rodriguez MD FACR CT Angiography 08/27/17 2331 Signed Impressions: Service Date/Time: Monday, August 28, 2017 00:01 - CONCLUSION: Saddle pulmonary embolism. Endotracheal tube tip extends into the right mainstem bronchus. Retraction by couple of centimeters recommended Chema Freeman MD Head CT 08/27/17 0000 Signed Impressions: Service Date/Time: August 23:58 - CONCLUSION: No acute intracranial findings. Chema Freeman MD Physical Exam HEENT: normocephalic, atraumatic, eyes open. 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 NGT 330 ml out put. no BM today but does have prior documented BMs. CT as above, no obstruction seen - gastric ulcer - path benign - anemia with drop in HH - since admission, normocytic, possible due to TPA hematology on case. s/p IVC filter. had EGD found large ulcer, HH stable - thrombocytopenia - hem onc following poss DIC - saddle PE, DVT, hypoxic ischemic encephalopathy, respiratory failure per [facility] palliative care to discuss pt with his 6 children re goals, this is ongoing PLAN - ok to try TF - Cont. BID PPI - await palliative care follow up & discussion with family - monitor labs - transfuse as needed - notify GI of active bleeding - supportive care This pt seen by myself and Dr Abdi and this note is written on his behalf (Max Yoon) Physician Comments As above, negative biopsy for malignancy. Will follow up with you periodically. (Mali Abdi MD) Max Yoon [facility] Sep 05, 2017 10:37 Mali Abdi MD Sep 05, 2017 10:43
[2017-09-05] MEDS: SODIUM CHLORIDE 0.9% FLUSH 10 ML FLUSH IV FLUSH SCH (10:40)
[2017-09-05] MEDS: PANTOPRAZOLE SODIUM 40 MG VIAL IV PUSH SCH ×2 (10:40→20:57)
[2017-09-05] MEDS: CHLORHEXIDINE 0.12% (ORAL KIT) 15 ML CUP MT SCH ×2 (10:40→20:56)
[2017-09-05] MEDS: CARBOXYMETHYLCELL SOD 0.5% OPTH SOLN 15 ML BTL EACH EYE SCH ×2 (10:40→20:56)
[2017-09-05] MEDS ORDERED: VANCOMYCIN 1,500 MG/NS 500 ML IV SCH ×2 (11:00)
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
[2017-09-05 12:35] LABS: HEMATOCRIT 25.9 % (39.0-51.0); HEMOGLOBIN 8.5 GM/DL (13.0-17.0)
[2017-09-05 15:58] LABS: BILIRUBIN, URINE NEG (NEG); BLOOD, URINE NEG (NEG); GLUCOSE,URINE NEG (NEG); KETONE, URINE NEG (NEG); MUCUS URINE FEW /lpf (OCC); NITRITE,URINE NEG (NEG); PH, URINE 5.5 (5.0-8.5); SQUAMOUS EPITHELIAL CELL URINE <1 /hpf (0-5); URINE COLOR YELLOW (YELLW/STRAW); URINE LEUKOCYTE ESTERASE NEG (NEG)
[2017-09-05 16:00] LABS: AMORPHOUS SEDIMENT, URINE FEW
--- NOTE | 2017-09-05 16:25 | RADRPT ---
EXAM DATE/TIME: 09/05/2017 15:12 [facility] COMPARISON: CHEST SINGLE AP, September 04, 2017, 12:14. INDICATIONS : Respiratory failure. MEDICAL HISTORY : Carcinoma, prostatic. Hypertension SURGICAL HISTORY : None. ENCOUNTER: Subsequent ACUITY: 1 week PAIN SCORE: Non-responsive. LOCATION: Bilateral chest FINDINGS: Bibasilar opacities are present may be due to a combination of consolidation and or pleural effusion. Lines and tubes are present not significantly changed and there is slight degree of perivascular pul monary edema as well. CONCLUSION: No appreciable change. Omid Villa MD on September 05, 2017 at 16:23 Board Certified Radiologist. This report was verified electronically.
[2017-09-05] MEDS: HEPARIN 25,000 UNITS-D5W 250 ML - PREMIX IV PRN (16:40)
[2017-09-05 18:45] LABS: HEMATOCRIT 26.2 % (39.0-51.0); HEMOGLOBIN 8.7 GM/DL (13.0-17.0)
[2017-09-05] MEDS: FAT EMULSION 20% INJ 250 ML (@10 mls/hr) IV SCH (20:53)
[2017-09-05] MEDS: CLINIMIX E 4.25/5 2000 mL- >42 mls/hr IV SCH ×3 (20:53)
[2017-09-05 22:57] LABS: HEMATOCRIT 26.3 % (39.0-51.0); HEMOGLOBIN 8.7 GM/DL (13.0-17.0)
[2017-09-06] VITALS (20 sets, daily range): BP systolic 105–108; BP diastolic 66–70; PULSE 81–94; RESP 18; TEMP 98.2–98.6; O2SAT 95–100
[2017-09-06] MEDS: RESP: ALBUTEROL 2.5 MG/IPRATROPIUM 0.5 MG NEB (SCH) NEB ×4 (04:59→21:42)
[2017-09-06] MEDS: INSULIN NovoLIN REGULAR SUPPLEMENTAL SCALE SQ SCH ×4 (06:00→22:54)
[2017-09-06 07:07] LABS: AUTOMATED NEUTROPHIL # 10.5 TH/MM3 (1.8-7.7); BASOPHIL % 0.1 % (0.0-2.0); EOSINOPHIL # 0.3 TH/MM3 (0-0.4); HEMATOCRIT 24.5 % (39.0-51.0); HEMOGLOBIN 8.2 GM/DL (13.0-17.0); LYMPH % 9.5 % (9.0-44.0); LYMPHOCYTE # 1.3 TH/MM3 (1.0-4.8); MEAN CELL VOLUME 86.3 FL (80.0-100.0); MEAN CORPUSCULAR HEMOGLOBIN 28.9 PG (27.0-34.0); MEAN CORPUSCULAR HGB CONC 33.5 % (32.0-36.0); MEAN PLATELET VOLUME 10.6 FL (7.0-11.0); MONO % 10.3 % (0.0-8.0); MONOCYTE # 1.4 TH/MM3 (0-0.9); NEUT % 78.1 % (16.0-70.0); PLATELET COUNT 160 TH/MM3 (150-450); RED BLOOD COUNT 2.84 MIL/MM3 (4.50-5.90); RED CELL DISTRIBUTION WIDTH 16.1 % (11.6-17.2); WHITE BLOOD COUNT 13.4 TH/MM3 (4.0-11.0)
[2017-09-06 07:15] LABS: CALCIUM 8.1 MG/DL (8.5-10.1); CREATININE 0.43 MG/DL (0.60-1.30); MAGNESIUM 2.1 MG/DL (1.5-2.5)
[2017-09-06] MEDS: PANTOPRAZOLE SODIUM 40 MG VIAL IV PUSH SCH ×2 (09:00→19:59)
[2017-09-06] MEDS: SODIUM CHLORIDE 0.9% FLUSH 10 ML FLUSH IV FLUSH SCH (09:00)
[2017-09-06] MEDS: CARBOXYMETHYLCELL SOD 0.5% OPTH SOLN 15 ML BTL EACH EYE SCH ×2 (09:00→19:59)
[2017-09-06 12:28] LABS: HEMATOCRIT 23.2 % (39.0-51.0); HEMOGLOBIN 7.9 GM/DL (13.0-17.0)
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
--- NOTE | 2017-09-06 16:07 | HHI.GIFU ---
Subjective Remarks Currently on mechanical ventilation Eyes open, sponsored weakly to simple question occasionally with nod Plan on TPN since starting new PICC line in clamped (Tigist Covarrubias) Objective Vitals I&O Vital Signs Date Time Temp Pulse Resp B/P (MAP) Pulse Ox O2 Delivery O2 Flow Rate FiO2 09/06/17 14:00 90 09/06/17 14:00 98.5 90 108/67 (81) 100 09/06/17 14:00 40 09/06/17 12:00 98.5 90 108/67 (81) 100 09/06/17 12:00 40 09/06/17 12:00 90 09/06/17 11:47 97 40 09/06/17 10:00 98.5 90 108/67 (81) 100 09/06/17 10:00 90 09/06/17 10:00 40 09/06/17 08:46 98 40 09/06/17 08:00 87 09/06/17 06:00 87 09/06/17 05:35 100 40 09/06/17 04:00 90 09/06/17 04:00 98.5 90 108/67 (81) 100 09/06/17 04:00 40 09/06/17 02:00 93 09/06/17 00:03 100 40 09/06/17 00:00 40 09/06/17 00:00 94 09/06/17 00:00 98.5 94 106/68 (81) 97 09/05/17 22:00 99 09/05/17 21:05 100 40 09/05/17 20:00 40 09/05/17 20:00 98 09/05/17 20:00 98.4 98 115/84 (94) 99 09/05/17 18:30 85 09/05/17 18:00 91 09/05/17 17:30 89 95/64 (74) 100 09/05/17 17:01 87 101/59 (73) 100 09/05/17 16:30 93 102/63 (76) 100 09/05/17 16:25 89 109/65 (80) 100 I/O 09/05/17 09/05/17 09/05/17 09/06/17 09/06/17 09/06/17 07:00 15:00 23:00 07:00 15:00 23:00 Intake Total 190 ml 2050 ml 30 ml Output Total 325 ml 800 ml 875 ml Balance -135 ml 1250 ml -845 ml Intake IV Total 150 ml 2050 ml Tube Irrigant 30 ml Other 40 ml Output Urine Total 275 ml 600 ml 875 ml Gastric Drainage Total 50 ml 200 ml # Voids 1 # Bowel Movements 0 Laboratory Laboratory Tests Test 09/05/17 16:45 09/05/17 17:00 09/05/17 19:00 09/05/17 22:30 Hemoglobin 8.7 8.7 Hematocrit 26.2 26.3 Activated Partial Thromboplast Time 97.7 68.3 Test 09/06/17 01:00 09/06/17 05:09 09/06/17 12:00 Activated Partial Thromboplast Time 52.3 53.6 White Blood Count 13.4 Red Blood Count 2.84 Hemoglobin 8.2 7.9 Hematocrit 24.5 23.2 Mean Corpuscular Volume 86.3 Mean Corpuscular Hemoglobin 28.9 Mean Corpuscular Hemoglobin Concent 33.5 Red Cell Distribution Width 16.1 Platelet Count 160 Mean Platelet Volume 10.6 Neutrophils (%) (Auto) 78.1 Lymphocytes (%) (Auto) 9.5 Monocytes (%) (Auto) 10.3 Eosinophils (%) (Auto) 2.0 Basophils (%) (Auto) 0.1 Neutrophils # (Auto) 10.5 Lymphocytes # (Auto) 1.3 Monocytes # (Auto) 1.4 Eosinophils # (Auto) 0.3 Basophils # (Auto) 0.0 CBC Comment DIFF FINAL Differential Comment Blood Urea Nitrogen 21 Creatinine 0.43 Random Glucose 80 Calcium Level 8.1 Phosphorus Level 3.0 Magnesium Level 2.1 Sodium Level 141 Potassium Level 4.0 Chloride Level 108 Carbon Dioxide Level 27.0 Anion Gap 6 Estimat Glomerular Filtration Rate 192 Date/Time Source Procedure Growth Status 09/05/17 12:10 Blood Line Aerobic Blood Culture - Preliminary NO GROWTH IN 1 DAY Resulted 09/05/17 12:10 Blood Line Anaerobic Blood Culture - Preliminary NO GROWTH IN 1 DAY Resulted 08/30/17 09:54 Stool Stool Stool Occult Blood (JORI) - Final HEMOCCULT NEGATIVE Complete 09/05/17 10:00 Sputum Endotracheal Gram Stain - Final Resulted 09/05/17 10:00 Sputum Culture - Preliminary Gram Negative Dar Resulted 09/01/17 23:35 Urine Catheterized Urine Urine Culture - Final NO GROWTH IN 48 HOURS. Complete Imaging Last Impressions Abdomen X-Ray 09/05/17 0600 Signed Impressions: Service Date/Time: Tuesday, September 05, 2017 03:45 - CONCLUSION: Benign-appearing abdomen. Chema Peters MD Chest X-Ray 09/05/17 0000 Signed Impressions: Service Date/Time: Tuesday, September 05, 2017 15:12 - CONCLUSION: No appreciable change. Omid Villa MD Abdomen/Pelvis CT 09/04/17 0000 Signed Impressions: Service Date/Time: Monday, September 04, 2017 12:52 - CONCLUSION: 1. Nasogastric tube in the stomach with small to moderate amount of contrast present in the stomach with no extravasation or evidence of fistula. 2. Nonobstructive bowel gas pattern with no evidence of free air. 3. Consolidation in both posterior lower lobes with air bronchograms and small effusions. 4. Stable small atrophic right kidney. 5. Small to moderate amount of ascitic fluid present in the abdomen and pelvis which is nonspecific. There is no free air. Maxime Harrell MD IVC Filter Placement X-Ray 09/01/17 0000 Signed Impressions: Service Date/Time: Friday, September 01, 2017 10:18 - CONCLUSION: Uncomplicated inferior vena cava filter placement as above. Chema Freeman MD Lower Extremity Ultrasound 08/30/17 0000 Signed Impressions: Service Date/Time: Wednesday, August 30, 2017 10:45 - CONCLUSION: Venous thrombosis bilaterally as above. Dayton Rodriguez MD FACR CT Angiography 08/27/17 2331 Signed Impressions: Service Date/Time: Monday, August 28, 2017 00:01 - CONCLUSION: Saddle pulmonary embolism. Endotracheal tube tip extends into the right mainstem bronchus. Retraction by couple of centimeters recommended Chema Freeman MD Head CT 08/27/17 0000 Signed Impressions: Service Date/Time: August 23:58 - CONCLUSION: No acute intracranial findings. Chema Freeman MD Physical Exam HEENT: normocephalic, atraumatic, eyes open. intubated, NGT lamp CHEST: coarse rhonchi, diminished breath sounds at bases CARDIAC: RRR ABDOMEN: soft, round, tympanitic to auscultation, nontender to light palpation ; no hepatosplenomegaly; bowel sounds very soft EXTREMITIES: no cyanosis or edema SKIN: LUE wound ENGINEERING MGR: Awake ,opens eyes (Tigist Covarrubias) Assessment and Plan Plan ASSESSMENT - abd distention - Abd X-ray today with benign appearing abd. NGT 330 ml out put. no BM today but does have prior documented BMs. CT as above, no obstruction seen - gastric ulcer - path benign - anemia with drop in HH - since admission, normocytic, possible due to TPA hematology on case. s/p IVC filter. had EGD found large ulcer, HH stable , NG tube clamped but has some dark red secretions around - thrombocytopenia - hem onc following, hgb 7.9 today - saddle PE, DVT, hypoxic ischemic encephalopathy, respiratory failure per [facility] palliative care to discuss pt with his 6 children re goals, this is ongoing PLAN - NG clamped for now, dark red secretions noted in tube - New PICC line and starting TPN today - Cont. BID PPI - await palliative care follow up & discussion with family, no visit today - monitor labs, recheck in a.m. hemoglobin - transfuse as needed - notify GI of active bleeding - supportive care This pt seen by myself and Dr Abdi and this note is written on his behalf (Tigist Covarrubias) Physician Comments As above, will follow up with you. (Mali Abdi MD) Tigist Covarrubias Sep 06, 2017 16:07 Mali Abdi MD Sep 06, 2017 18:05
[2017-09-06 17:04] LABS: HEMATOCRIT 23.1 % (39.0-51.0); HEMOGLOBIN 7.9 GM/DL (13.0-17.0)
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
[2017-09-06] MEDS: CLINIMIX E 4.25/5 2000 mL- >42 mls/hr IV SCH ×3 (19:58)
[2017-09-06] MEDS: FAT EMULSION 20% INJ 250 ML (@10 mls/hr) IV SCH (19:58)
[2017-09-06] MEDS: DOCUSATE SODIUM 50 MG/SENNA 8.6 MG TAB PO SCH (19:58)
[2017-09-06] MEDS: CHLORHEXIDINE 0.12% (ORAL KIT) 15 ML CUP MT SCH (20:00)
[2017-09-06] MEDS: CEFEPIME INJ 2,000 MG in SODIUM CHLORIDE 0.9% INJ 100 ML IV SCH (22:54)
[2017-09-06] MEDS: HEPARIN-D5W 25,000 U/250 ML 250 ML IV PRN (23:45)
[2017-09-07] VITALS (19 sets, daily range): BP systolic 95–135; BP diastolic 62–70; PULSE 76–102; RESP 17–27; TEMP 98.4–99.2; O2SAT 94–100
[2017-09-07 01:35] LABS: HEMATOCRIT 23.3 % (39.0-51.0); HEMOGLOBIN 7.7 GM/DL (13.0-17.0)
[2017-09-07] MEDS: RESP: ALBUTEROL 2.5 MG/IPRATROPIUM 0.5 MG NEB (SCH) NEB ×4 (03:31→20:50)
[2017-09-07] MEDS: CHLORHEXIDINE GLUCONATE 2 % 1 PACK (2 CLOTHS) TOP SCH (04:00)
[2017-09-07] MEDS: CEFEPIME INJ 2,000 MG in SODIUM CHLORIDE 0.9% INJ 100 ML IV SCH ×3 (04:34→20:05)
[2017-09-07 04:35] LABS: HEMATOCRIT 23.7 % (39.0-51.0); MEAN CELL VOLUME 85.2 FL (80.0-100.0); MEAN CORPUSCULAR HEMOGLOBIN 28.8 PG (27.0-34.0); MEAN CORPUSCULAR HGB CONC 33.9 % (32.0-36.0); MEAN PLATELET VOLUME 9.5 FL (7.0-11.0); PLATELET COUNT 178 TH/MM3 (150-450); RED BLOOD COUNT 2.78 MIL/MM3 (4.50-5.90); RED CELL DISTRIBUTION WIDTH 16.4 % (11.6-17.2); WHITE BLOOD COUNT 12.9 TH/MM3 (4.0-11.0)
[2017-09-07] MEDS: INSULIN NovoLIN REGULAR SUPPLEMENTAL SCALE SQ SCH ×3 (06:00→18:00)
[2017-09-07] MEDS: CARBOXYMETHYLCELL SOD 0.5% OPTH SOLN 15 ML BTL EACH EYE SCH ×2 (09:04→20:05)
[2017-09-07] MEDS: SODIUM CHLORIDE 0.9% FLUSH 10 ML FLUSH IV FLUSH SCH (09:05)
[2017-09-07] MEDS: DOCUSATE SODIUM 50 MG/SENNA 8.6 MG TAB PO SCH ×2 (09:05→20:06)
[2017-09-07] MEDS: PANTOPRAZOLE SODIUM 40 MG VIAL IV PUSH SCH ×2 (09:05→20:06)
[2017-09-07] MEDS: CHLORHEXIDINE 0.12% (ORAL KIT) 15 ML CUP MT SCH ×2 (09:06→20:06)
[2017-09-07] MEDS ORDERED: PHARMACY ORDERED LAB ONE (10:45)
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
[2017-09-07] MEDS ORDERED: FUROSEMIDE 20 MG/2 ML VIAL IV PUSH ONE (14:30)
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
[2017-09-07 16:44] LABS: HEMATOCRIT 25.3 % (39.0-51.0); HEMOGLOBIN 8.4 GM/DL (13.0-17.0)
[2017-09-07] MEDS: FAT EMULSION 20% INJ 250 ML (@10 mls/hr) IV SCH (20:05)
[2017-09-07] MEDS: CLINIMIX E 4.25/5 2000 mL- >42 mls/hr IV SCH ×3 (20:05)
[2017-09-07 20:23] LABS: HEMATOCRIT 25.3 % (39.0-51.0); HEMOGLOBIN 8.3 GM/DL (13.0-17.0)
[2017-09-08] VITALS (18 sets, daily range): BP systolic 87–96; BP diastolic 53–66; PULSE 89–114; RESP 14–25; TEMP 97.9–99; O2SAT 91–98
[2017-09-08 01:21] LABS: HEMATOCRIT 24.3 % (39.0-51.0); HEMOGLOBIN 7.9 GM/DL (13.0-17.0)
[2017-09-08] MEDS: RESP: ALBUTEROL 2.5 MG/IPRATROPIUM 0.5 MG NEB (SCH) NEB ×4 (03:28→21:42)
[2017-09-08] MEDS: CEFEPIME INJ 2,000 MG in SODIUM CHLORIDE 0.9% INJ 100 ML IV SCH ×3 (04:00→20:00)
[2017-09-08] MEDS: CHLORHEXIDINE GLUCONATE 2 % 1 PACK (2 CLOTHS) TOP SCH (04:00)
[2017-09-08] MEDS: INSULIN NovoLIN REGULAR SUPPLEMENTAL SCALE SQ SCH ×4 (05:20→18:00)
[2017-09-08] MEDS: HEPARIN-D5W 25,000 U/250 ML 250 ML IV PRN (05:25)
[2017-09-08 05:58] LABS: HEMATOCRIT 24.8 % (39.0-51.0); HEMOGLOBIN 8.2 GM/DL (13.0-17.0)
[2017-09-08] MEDS: CHLORHEXIDINE 0.12% (ORAL KIT) 15 ML CUP MT SCH ×2 (08:00→21:07)
[2017-09-08] MEDS: PANTOPRAZOLE SODIUM 40 MG VIAL IV PUSH SCH ×2 (08:47→20:51)
[2017-09-08] MEDS: CARBOXYMETHYLCELL SOD 0.5% OPTH SOLN 15 ML BTL EACH EYE SCH ×2 (08:47→20:51)
[2017-09-08] MEDS: DOCUSATE SODIUM 50 MG/SENNA 8.6 MG TAB PO SCH ×2 (08:48→20:51)
[2017-09-08] MEDS: SODIUM CHLORIDE 0.9% FLUSH 10 ML FLUSH IV FLUSH SCH (08:48)
[2017-09-08 09:55] LABS: HEMATOCRIT 24.8 % (39.0-51.0); HEMOGLOBIN 8.4 GM/DL (13.0-17.0); MEAN CELL VOLUME 85.6 FL (80.0-100.0); MEAN CORPUSCULAR HEMOGLOBIN 28.9 PG (27.0-34.0); MEAN CORPUSCULAR HGB CONC 33.8 % (32.0-36.0); MEAN PLATELET VOLUME 10.7 FL (7.0-11.0); PLATELET COUNT 224 TH/MM3 (150-450); RED BLOOD COUNT 2.89 MIL/MM3 (4.50-5.90); RED CELL DISTRIBUTION WIDTH 16.3 % (11.6-17.2); WHITE BLOOD COUNT 13.2 TH/MM3 (4.0-11.0)
[2017-09-08 10:07] LABS: CREATININE 0.5 MG/DL (0.60-1.30)
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
[2017-09-08] MEDS: LEVOFLOXACIN 750 MG PREMIX INJ 150 ML IV SCH (15:00)
[2017-09-08] MEDS: ENOXAPARIN SODIUM 80 MG/0.8 ML SYRINGE SQ SCH (15:00)
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
[2017-09-08] MEDS: CLINIMIX E 4.25/5 2000 mL- >42 mls/hr IV SCH ×3 (20:51)
[2017-09-08] MEDS: FAT EMULSION 20% INJ 250 ML (@10 mls/hr) IV SCH (20:51)
[2017-09-09] VITALS (12 sets, daily range): BP systolic 62–118; BP diastolic 37–76; PULSE 99–121; RESP 21–36; TEMP 98.9–99.6; O2SAT 76–99
[2017-09-09] MEDS: RESP: ALBUTEROL 2.5 MG/IPRATROPIUM 0.5 MG NEB (SCH) NEB ×2 (03:46→08:51)
[2017-09-09] MEDS: ENOXAPARIN SODIUM 80 MG/0.8 ML SYRINGE SQ SCH ×2 (03:56→15:13)
[2017-09-09] MEDS: CEFEPIME INJ 2,000 MG in SODIUM CHLORIDE 0.9% INJ 100 ML IV SCH ×2 (03:56→12:54)
[2017-09-09] MEDS: CHLORHEXIDINE GLUCONATE 2 % 1 PACK (2 CLOTHS) TOP SCH (04:00)
[2017-09-09] MEDS: INSULIN NovoLIN REGULAR SUPPLEMENTAL SCALE SQ SCH ×3 (06:00→12:00)
[2017-09-09] MEDS: CHLORHEXIDINE 0.12% (ORAL KIT) 15 ML CUP MT SCH (08:53)
[2017-09-09] MEDS: PANTOPRAZOLE SODIUM 40 MG VIAL IV PUSH SCH (08:54)
[2017-09-09] MEDS: SODIUM CHLORIDE 0.9% FLUSH 10 ML FLUSH IV FLUSH SCH (08:54)
[2017-09-09] MEDS: CARBOXYMETHYLCELL SOD 0.5% OPTH SOLN 15 ML BTL EACH EYE SCH (08:54)
[2017-09-09] MEDS: DOCUSATE SODIUM 50 MG/SENNA 8.6 MG TAB PO SCH (08:55)
[2017-09-09 10:34] LABS: HEMATOCRIT 25.3 % (39.0-51.0); HEMOGLOBIN 8.3 GM/DL (13.0-17.0); MEAN CELL VOLUME 86.5 FL (80.0-100.0); MEAN CORPUSCULAR HEMOGLOBIN 28.4 PG (27.0-34.0); MEAN CORPUSCULAR HGB CONC 32.8 % (32.0-36.0); MEAN PLATELET VOLUME 10.6 FL (7.0-11.0); PLATELET COUNT 231 TH/MM3 (150-450); RED BLOOD COUNT 2.92 MIL/MM3 (4.50-5.90); RED CELL DISTRIBUTION WIDTH 16.3 % (11.6-17.2); WHITE BLOOD COUNT 18.7 TH/MM3 (4.0-11.0)
[2017-09-09 11:00] LABS: BICARBONATE 29.7 MEQ/L (21.0-32.0); CALCIUM 8.5 MG/DL (8.5-10.1); CREATININE 0.53 MG/DL (0.60-1.30)
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
[2017-09-09] MEDS ORDERED: MORPHINE SULFATE 2 MG/ML INJ IV PUSH PRN ×2 (12:30→17:30)
[2017-09-09] MEDS: MORPHINE SULFATE 2 MG/ML INJ IV PUSH PRN ×5 (13:30→16:47)
--- NOTE | 2017-09-09 13:49 | HHI.GIFU ---
Subjective Remarks Nonresponsive Receiving morphine for his comfort 4 family members are present, planning on comfort be in the main focus for their loved one at this time Temp 99.3 Tachycardic heart rate 117 Objective Vitals I&O Vital Signs Date Time Temp Pulse Resp B/P (MAP) Pulse Ox O2 Delivery O2 Flow Rate FiO2 09/09/17 12:56 76 Non-Rebreather 09/09/17 12:31 25 09/09/17 12:00 117 09/09/17 12:00 99.3 117 30 118/76 (90) 81 09/09/17 10:00 104 09/09/17 08:52 99 Non-Rebreather 09/09/17 08:00 102 09/09/17 08:00 98.9 102 21 100/64 (76) 97 09/09/17 07:00 92 Non-Rebreather 13.00 09/09/17 06:00 109 09/09/17 04:00 98.9 104 22 98/65 (76) 88 09/09/17 04:00 104 09/09/17 02:00 99 09/09/17 00:00 98.9 103 22 90/56 (67) 90 09/09/17 00:00 103 09/08/17 22:00 107 09/08/17 21:42 98 Partial Rebreather 13.00 09/08/17 20:00 97.9 96 21 93/55 (68) 95 09/08/17 20:00 96 09/08/17 19:00 96 Non-Rebreather 13.00 09/08/17 18:27 89 09/08/17 18:00 114 25 87/59 (68) 91 09/08/17 18:00 114 09/08/17 17:00 100 19 92/55 (67) 95 09/08/17 16:00 98.3 99 25 96/58 (71) 95 09/08/17 16:00 99 09/08/17 15:45 96 Non-Rebreather 13.00 09/08/17 15:00 96 21 91/66 (74) 95 09/08/17 14:00 95 21 94/59 (71) 98 09/08/17 14:00 95 I/O 09/08/17 09/08/17 09/08/17 09/09/17 09/09/17 1/3/18 07:00 15:00 23:00 07:00 15:00 23:00 Intake Total 1395.4 ml 100 ml 2620 ml 1131 ml Output Total 2700 ml 1265 ml 1700 ml Balance -1304.6 ml 100 ml 1355 ml -569 ml Intake IV Total 1295.4 ml 100 ml 2500 ml 1131 ml Tube Irrigant 100 ml 120 ml Output Urine Total 2600 ml 1200 ml 1700 ml Gastric Drainage Total 100 ml 65 ml # Bowel Movements 0 1 Laboratory Laboratory Tests Test 09/09/17 06:10 White Blood Count 18.7 Red Blood Count 2.92 Hemoglobin 8.3 Hematocrit 25.3 Mean Corpuscular Volume 86.5 Mean Corpuscular Hemoglobin 28.4 Mean Corpuscular Hemoglobin Concent 32.8 Red Cell Distribution Width 16.3 Platelet Count 231 Mean Platelet Volume 10.6 Activated Partial Thromboplast Time 36.6 Blood Urea Nitrogen 25 Creatinine 0.53 Random Glucose 101 Calcium Level 8.5 Sodium Level 137 Potassium Level 4.6 Chloride Level 102 Carbon Dioxide Level 29.7 Anion Gap 5 Estimat Glomerular Filtration Rate 151 Date/Time Source Procedure Growth Status 09/05/17 12:10 Blood Line Aerobic Blood Culture - Preliminary NO GROWTH IN 4 DAYS Resulted 09/05/17 12:10 Blood Line Anaerobic Blood Culture - Preliminary NO GROWTH IN 4 DAYS Resulted 08/30/17 09:54 Stool Stool Stool Occult Blood (JORI) - Final HEMOCCULT NEGATIVE Complete 09/05/17 10:00 Sputum Endotracheal Gram Stain - Final Complete 09/05/17 10:00 Sputum Culture - Final Acinetobacter Lwoffii Group S. Aureus Mrsa Enterobacter Cloacae Esbl Pos Complete 09/01/17 23:35 Urine Catheterized Urine Urine Culture - Final NO GROWTH IN 48 HOURS. Complete Physical Exam HEENT: normocephalic, skin very pale CHEST: coarse rhonchi, diminished breath sounds at bases CARDIAC: RRR ABDOMEN: soft, round, tympanitic to auscultation, nontender. Minimal bowel sounds if any EXTREMITIES: no cyanosis or edema, pale SKIN: LUE wound, pale AIRLINE ATTENDANT: Sedated eyes closed Assessment and Plan Plan ASSESSMENT - abd distention - continues, soft CT as above, no obstruction seen - gastric ulcer - path benign - anemia hemoglobin now 8.3 hematology on case. s/p IVC filter. had EGD found large ulcer, HH stable , NG tube clamped but has some dark red secretions around - thrombocytopenia - - saddle PE, DVT, hypoxic ischemic encephalopathy, respiratory failure per [facility] palliative care playing an active role in this patient's plan of care. 6 children, now DO NOT RESUSCITATE status no code, morphine for pain control PLAN - NG continue - New PICC line and starting TPN today - Cont. BID PPI - monitor labs as warranted - transfuse as needed if family desires - Monitor for active bleeding - supportive care, GI will sign off but are available if any acute changes are needed This pt seen by myself, note is written for Dr. Mazariegos, plan of care discussed Tigist Covarrubias Sep 09, 2017 13:49
[2017-09-09] MEDS: LEVOFLOXACIN 750 MG PREMIX INJ 150 ML IV SCH (15:13)
[2017-09-09] MEDS ORDERED: LORazepam 2 MG/ML VIAL IV PUSH PRN (15:45)
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
[2017-09-09] MEDS ORDERED: FUROSEMIDE 20 MG/2 ML VIAL IV PUSH PRN (17:00)
--- NOTE | 2017-09-09 18:07 | HHI.DS ---
Summary Note Date of : Sep 09, 2017 Time Of : 1705 Admission Date Aug 28, 2017 at 00:44 Admitting Diagnosis Diagnosis at Time of : Brief History This is a 76-year-old male who presents as an out of hospital cardiac arrest. Per EMS report, there received a phone call for shortness of breath. When they arrived at the scene, patient had agonal respirations and was found to be in PEA. ACLS was initiated. Patient was given a total of 2 mg epinephrine, 1 amp of bicarbonate. ROSC was obtained momentarily, but PEA arrest ensued shortly after. A second round of ACLS by EMS, then ROSC was obtained again. The patient arrived to the emergency department with a pulse but severely hypotensive in shock. In emergency Department patient was started on norepinephrine.. CTA of the chest demonstrated massive saddle pulmonary embolism. Due to his hemodynamic instability, decision was made to pursue lytic therapy with systemic TPA. Patient is transferred to the ICU for ongoing care. I evaluated patient in the emergency department. Due to his clinical condition, no additional information is available from the patient. CBC/BMP: 09/09/17 0610 09/09/17 0610 Significant Findings Laboratory Tests Test 09/07/17 01:10 09/07/17 04:20 09/07/17 06:30 09/07/17 15:17 Hemoglobin 7.7 GM/DL (13.0-17.0) 8.0 GM/DL (13.0-17.0) 8.4 GM/DL (13.0-17.0) Hematocrit 23.3 % (39.0-51.0) 23.7 % (39.0-51.0) 25.3 % (39.0-51.0) White Blood Count 12.9 TH/MM3 (4.0-11.0) Red Blood Count 2.78 MIL/MM3 (4.50-5.90) Activated Partial Thromboplast Time 45.7 SEC (24.3-30.1) Test 09/07/17 18:15 09/08/17 00:30 09/08/17 05:26 09/08/17 08:57 Hemoglobin 8.3 GM/DL (13.0-17.0) 7.9 GM/DL (13.0-17.0) 8.2 GM/DL (13.0-17.0) 8.4 GM/DL (13.0-17.0) Hematocrit 25.3 % (39.0-51.0) 24.3 % (39.0-51.0) 24.8 % (39.0-51.0) 24.8 % (39.0-51.0) Activated Partial Thromboplast Time 51.8 SEC (24.3-30.1) White Blood Count 13.2 TH/MM3 (4.0-11.0) Red Blood Count 2.89 MIL/MM3 (4.50-5.90) Blood Urea Nitrogen 23 MG/DL (7-18) Creatinine 0.50 MG/DL (0.60-1.30) Calcium Level 8.0 MG/DL (8.5-10.1) Test 09/08/17 12:23 09/09/17 06:10 Activated Partial Thromboplast Time 49.5 SEC (24.3-30.1) 36.6 SEC (24.3-30.1) White Blood Count 18.7 TH/MM3 (4.0-11.0) Red Blood Count 2.92 MIL/MM3 (4.50-5.90) Hemoglobin 8.3 GM/DL (13.0-17.0) Hematocrit 25.3 % (39.0-51.0) Blood Urea Nitrogen 25 MG/DL (7-18) Creatinine 0.53 MG/DL (0.60-1.30) Imaging Last Impressions Chest X-Ray 09/03/17 0600 Signed Impressions: Service Date/Time: August 04:33 - CONCLUSION: No appreciable change. Omid Villa MD IVC Filter Placement X-Ray 09/01/17 0000 Signed Impressions: Service Date/Time: Friday, September 01, 2017 10:18 - CONCLUSION: Uncomplicated inferior vena cava filter placement as above. Chema Freeman MD Lower Extremity Ultrasound 08/30/17 0000 Signed Impressions: Service Date/Time: Wednesday, August 30, 2017 10:45 - CONCLUSION: Venous thrombosis bilaterally as above. Dayton Rodriguez MD FACR Abdomen X-Ray 08/30/17 0000 Signed Impressions: Service Date/Time: Wednesday, August 30, 2017 08:26 - CONCLUSION: Femoral line on the left, otherwise negative Dayton Rodriguez MD FACR CT Angiography 08/27/17 2331 Signed Impressions: Service Date/Time: Monday, August 28, 2017 00:01 - CONCLUSION: Saddle pulmonary embolism. Endotracheal tube tip extends into the right mainstem bronchus. Retraction by couple of centimeters recommended Chema Freeman MD Head CT 08/27/17 0000 Signed Impressions: Service Date/Time: August 23:58 - CONCLUSION: No acute intracranial findings. Chema Freeman MD Hospital Course 08/28: The patient continues on multiple vasopressors currently to maintain MAP greater than 65. OGT to low intermittent wall suction exhibiting bloody output. 08/29:The patient is opening eyes spontaneously. Continues on vasopressor support. OGT noted to have 400 cc of bloody output over the last 12 hours. Plan for every 12 hours serial hemoglobin. 08/30: Patient noted to have acute blood loss hemoglobin drop of 1 g/dL with trending H&H. Approximately 200- 400 cc gastric positive blood from OGT. OGT taken off suction, clamped. Heparin protocol placed on hold , patient may possibly need IVC filter in the future, if unable to continue anticoagulation. Hematology Oncology has been consulted .Patient to be transfused 2 units of packed red blood cells, Hemoccult, KUB pending. Patient noted to have recurrent multifocal PVCs this a.m. , electrolytes within normal limits. Patient is responsive this a.m. following commands. 08/31: Tmax 99.9. The patient continued to have GI bleeding yesterday afternoon , Hemoccult was negative. Heparin was discontinued the patient received 2 units of packed red blood cells. Ultrasound bilateral lower extremities positive for thrombus. Hematology oncology was consulted, plan for IVC filter placement. The patient noted platelets decreasing HIT panel pending. 09/01 Scant brown OGT output today. Hgb stabe, 8.4. IVC filter today per IR. Tube feeds on hold and GI planning for EGD. Off levophed. HIT ab negative. 09/02: Status post EGD today which revealed large gastric ulcers the fundus.- Phenylephrine Drip has just been discontinued. Maintaining mean arterial Pressure greater than 65. Hemoglobin stable. 09/03: Afebrile. Apneic during PSV trial today. Hemoglobin stable at 8.7. Maintaining mean arterial pressure within 65. Currently being bolused with colloid. Family meeting toda 09/04: Afebrile. Currently a PSV trial. Hemoglobin remained stable. Restarting heparin drip today - okay per GI. Holding off on tube feeding in light of some elevated gastric residuals. After family meeting, patient DNR see orders 09/05 Tolerated CPAP 12/5 for 8 hours yesterday. Today I attempted to place on CPAP multiple times and he is apneic. Holding fentanyl completely and will reattempt. He follows commands weakly. RN stateses gastric output has been feculent smelling but is thinner today than yesterday. Not keeping to LIWS per GI due to ulcers. Afebrile but white blood cell count 14.8. Pancultured today per ID. 09/06 - Lots more respiratory secretions today. Desaturates when placed on CPAP 8/5 45%. Sputum with GNRs. Leukocytosis without a significant change. No fever. 09/07: more awake today. follows commands. passed SBT. afebrile. wbc stable. 09/08: extubated yesterday. was doing well overnight and this AM on 3L o2 by nc. this morning, had formal swallow eval, failed for dysphagia. now on NRB o2 and dyspneic. DNR status remains. otherwise still awake following commands. has had stable hgb since 09/04 on heparin drip. will transition back to lovenox. still NPO. 09/09: not doing well today. remains on NRB. tachypneic and dyspneic. respiratory therapy doing aggressive pulmonary toilet including frequent NT suctioning. patient remains DNR. likely will from this illness. patient does state he is in significant pain and asked for pain meds to help. patient is NPO so will order iv pain meds. Despite our best efforts, the patient at 17:05. Stevo Noriega MD Sep 09, 2017 18:07
== END 2017-09-09 17:05 | disposition expired | DRG 166 ==
LOC: NEPE 23:08 → NEDA 08-28 00:44 → HIME 08-28 01:15
PROVIDERS: ADMIT Internal Medicine Critical Care Medicine; ATTEND Internal Medicine Critical Care Medicine
PROC: 5A1955Z Respiratory Ventilation, Greater than 96 Consecutive Hours (ICD-10-PCS; principal; 2017-08-28)
PROC: 03HY32Z Insertion of Monitoring Device into Upper Artery, Percutaneous Approach (ICD-10-PCS; 2017-08-28)
PROC: 0BH17EZ Insertion of Endotracheal Airway into Trachea, Via Natural or Artificial Opening (ICD-10-PCS; 2017-08-28)
PROC: 0T9B70Z Drainage of Bladder with Drainage Device, Via Natural or Artificial Opening (ICD-10-PCS; 2017-08-28)
PROC: 3E0F7GC Introduction of Other Therapeutic Substance into Respiratory Tract, Via Natural or Artificial Opening (ICD-10-PCS; 2017-08-28)
PROC: 3E05317 Introduction of Other Thrombolytic into Peripheral Artery, Percutaneous Approach (ICD-10-PCS; 2017-08-28)
PROC: 4A133B1 Monitoring of Arterial Pressure, Peripheral, Percutaneous Approach (ICD-10-PCS; 2017-08-28)
PROC: 4A133J1 Monitoring of Arterial Pulse, Peripheral, Percutaneous Approach (ICD-10-PCS; 2017-08-28)
PROC: 06HN33Z Insertion of Infusion Device into Left Femoral Vein, Percutaneous Approach (ICD-10-PCS; 2017-08-30)
PROC: 30233N1 Transfusion of Nonautologous Red Blood Cells into Peripheral Vein, Percutaneous Approach (ICD-10-PCS; 2017-08-31)
PROC: 06H03DZ Insertion of Intraluminal Device into Inferior Vena Cava, Percutaneous Approach (ICD-10-PCS; 2017-09-01)
PROC: 0DB68ZX Excision of Stomach, Via Natural or Artificial Opening Endoscopic, Diagnostic (ICD-10-PCS; 2017-09-02)
PROC: 05HN33Z Insertion of Infusion Device into Left Internal Jugular Vein, Percutaneous Approach (ICD-10-PCS; 2017-09-04)
DX: I26.92 Saddle embolus of pulmonary artery without acute cor pulmonale (principal); J96.01 Acute respiratory failure with hypoxia; I46.9 Cardiac arrest, cause unspecified; R57.0 Cardiogenic shock; J96.02 Acute respiratory failure with hypercapnia; I50.21 Acute systolic (congestive) heart failure; G93.1 Anoxic brain damage, not elsewhere classified; K25.4 Chronic or unspecified gastric ulcer with hemorrhage; G81.94 Hemiplegia, unspecified affecting left nondominant side; D68.9 Coagulation defect, unspecified; I13.0 Hypertensive heart and chronic kidney disease with heart failure and stage 1 through stage 4 chronic kidney disease, or unspecified chronic kidney disease; N17.9 Acute kidney failure, unspecified; E44.0 Moderate protein-calorie malnutrition; I82.411 Acute embolism and thrombosis of right femoral vein; I82.442 Acute embolism and thrombosis of left tibial vein; I82.4Y2 Acute embolism and thrombosis of unspecified deep veins of left proximal lower extremity; I82.4Z1 Acute embolism and thrombosis of unspecified deep veins of right distal lower extremity; D62 Acute posthemorrhagic anemia; N39.0 Urinary tract infection, site not specified; I47.2 Ventricular tachycardia; E78.00 Pure hypercholesterolemia, unspecified; N18.9 Chronic kidney disease, unspecified; Z87.442 Personal history of urinary calculi; Z90.5 Acquired absence of kidney; Z92.3 Personal history of irradiation; Z87.820 Personal history of traumatic brain injury; Z78.1 Physical restraint status; I45.10 Unspecified right bundle-branch block; R73.9 Hyperglycemia, unspecified; Z85.46 Personal history of malignant neoplasm of prostate; Z99.3 Dependence on wheelchair; I08.3 Combined rheumatic disorders of mitral, aortic and tricuspid valves; Z51.5 Encounter for palliative care; Z87.891 Personal history of nicotine dependence; F32.9 Major depressive disorder, single episode, unspecified; D69.6 Thrombocytopenia, unspecified; G93.89 Other specified disorders of brain; Z66 Do not resuscitate; R13.10 Dysphagia, unspecified; H26.9 Unspecified cataract; F09 Unspecified mental disorder due to known physiological condition; E83.39 Other disorders of phosphorus metabolism; Z74.01 Bed confinement status; T45.615A Adverse effect of thrombolytic drugs, initial encounter; Y92.239 Unspecified place in hospital as the place of occurrence of the external cause
CPT/HCPCS: 31500; 36430; 36556; 36620; 37191; 43752; 51702; 70450; 71010; 71275; 74000; 74176; 76937; 80048; 80053; 80076; 80202; 81001; 82272; 82435; 82550; 82552; 82565; 82805; 82947; 82948; 83605; 83735; 83880; 84100; 84132; 84155; 84295; 84484; 84520; 85007; 85014; 85018; 85025; 85027; 85384; 85610; 85730; 86022; 86403; 86850; 86900; 86901; 86920; 87040; 87070; 87077; 87086; 87147; 87186; 87205; 87641; 88305; 88312; 92950; 93005; 93306; 93970; 94002; 94003; 94640; 94664; 94667; 96365; 99152; C1769; C1880; C9113; J0171; J0461; J0690; J0692; J1644; J1650; J1940; J1956; J2060; J2250; J2270; J2370; J2997; J3010; J3105; J3370; J3480; J7030; J7040; J7050; J7060; J7070; P9016; Q9963; Q9967